=== PATIENT | male | born 1940 | race Caucasian/White ===

== ENCOUNTER → 2018-08-02 11:20 | Outpatient (CLI) | payer MEDICARE, SELFPAY ==
[2018-08-02 12:46] LABS: Alanine Aminotransferase 45 IU/L (21-72); Albumin 4.8 g/dL (3.5-5.0); Albumin Globulin Ratio 1.5 (1.0-2.8); Alkaline Phosphatase 68 U/L (38-126); Aspartate Aminotransferase 46 IU/L (17-59); Bilirubin Total 0.9 mg/dL (0.2-1.3); Blood Urea Nitrogen 19 mg/dL (9-20); Calcium 10.3 mg/dL (8.4-10.2); Carbon Dioxide 23 mmol/L (22-32); Chloride 104 mmol/L (98-107); Estimated Glomerular Filt Rate > 60.0 mL/min (>60); Globulin 3.1 g/dL (1.7-4.1); Glucose 106 mg/dL (80-110); HEMOLYSIS < 15 (0-50); Magnesium 2.1 mg/dL (1.6-2.3); Potassium 4.5 mmol/L (3.4-5.1); Sodium 142 mmol/L (137-145); Total Protein 7.9 g/dL (6.3-8.2)
[2018-08-07 11:59] LABS: Lipoprofile NMR SEE SEPERATE REPORT
== END ==
PROVIDERS: PCP Nurse Practitioner Adult Health; Visit Provider Specialist
DX: I10 Essential (primary) hypertension (principal)
CPT/HCPCS: 36415; 80053; 83704; 83735

== ENCOUNTER → 2018-08-13 12:45 | Outpatient (CLI) | payer MEDICARE, SELFPAY ==
--- NOTE | 2018-08-13 | DI.ECHO.S_ITS ---
[facility] +---------+ : : [address] : : : [place], [place] : : : : [id number] : : : : Phone: [phone]+ Echocardiogram Report + + :Name: FARHAD LEDESMA Study Date: 08/13/2018 Height: 67 in : :[facility] Weight: 190 lb: : Gender: Male BSA: 2.0 m2 : :: 1940 Age: 77 yrs : :Reason For Study: CAD : : Performed By: Winnie Monsivais : :Referring: YAEL MARCUM : + + Interpretation Summary The left ventricle is normal in size, wall thickness, and systolic function without any focal wall motion abnormalities with the ejection fraction visually estimated to be 60-65%. Diastolic parameters suggest a relaxation abnormality of the left ventricle, consistent with probable normal filling pressures. There has been no significant change since the previous study. The right ventricle is borderline dilated and right ventricular systolic function is borderline reduced, and appears larger and less dynamic compared to the previous study. The right ventricular systolic pressure is estimated to be at least 26 mmHg based on an estimated right atrial pressure of 3 mm Hg. Comparison with the previous study is not possible because this was unable to be assessed on the previous study. The left atrium is mildly dilated while the right atrium is borderline dilated. Both atria have mildly increased in size since the prior echo exam. There is mild mitral regurgitation that is unchanged compared to the previous study. There is mild tricuspid regurgitation and mild pulmonic regurgitation that are more prominent compared to the previous study. The ascending aorta is at the upper limits of normal in size but is grossly unchanged compared to the previous study. Procedure: A two-dimensional transthoracic echocardiogram with color flow and Doppler was performed. The study quality was technically good. Comparison is made with the echocardiogram of 10/24/2016. The heart rate ranged between 65-75 bpm during the study. Left Ventricle: The left ventricle is normal in size, wall thickness, and systolic function without any focal wall motion abnormalities. The ejection fraction is estimated to be 60-65%. Diastolic parameters suggest a relaxation abnormality of the left ventricle, consistent with probable normal filling pressures. There has been no significant change since the previous study. Right Ventricle: The right ventricle is borderline dilated. Right ventricular systolic function is borderline reduced. This is larger and less dynamic compared to the previous study. Atria: The left atrium is mildly dilated. Both atria have mildly increased in size since the prior echo exam. The right atrium is borderline dilated. There is no Doppler evidence for an interatrial shunt. Mitral Valve: The mitral valve is normal in structure and function. There is mild mitral annular calcification. There is mild mitral regurgitation. This is unchanged compared to the previous study. Aortic Valve: The aortic valve is normal in structure and function. The aortic valve is trileaflet. The aortic valve opens well. No aortic regurgitation is present. Tricuspid Valve: The tricuspid valve is normal in structure and function. There is mild tricuspid regurgitation. This is more prominent compared to the previous study. The right ventricular systolic pressure is estimated to be at least 26 mmHg based on an estimated right atrial pressure of 3 mm Hg. Comparison with the previous study is not possible because this was unable to be assessed on the previous study. Pulmonic Valve: The pulmonic valve is normal in structure and function. There is mild pulmonic regurgitation. This is more prominent compared to the previous study. Great Vessels: The aortic root is normal size. The ascending aorta is at the upper limits of normal in size. This is unchanged compared to the previous study. The aortic arch could not be visualized. The pulmonary artery is normal size. The IVC is of normal diameter and collapses greater than 50% with a sniff. This suggests a low right atrial pressure of 3 mm Hg. Pericardium/ Pleura There is no pericardial effusion. There is no pleural effusion. MMode/2D Measurements & Calculations LVIDd: 5.0 cm LVOT diam: 2.0 cm LVIDs: 3.0 cm Ao root diam: 3.4 cm FS: 39.8 % asc Aorta Diam: 3.4 cm EPSS: 0.37 cm IVSd: 0.77 cm LVPWd: 1.0 cm LV juárez. diameter/BSA (cm/m^2): 2.5 LV sys. diameter/BSA (cm/m^2): 1.5 LA A2 area: 21.8 cm2 RA long axis: 5.5 cm LA A4 area: 21.9 cm2 RA area: 20.0 cm2 LA length (vol): 5.5 cm RA vol: 62.4 ml LA vol: 73.5 ml RA : 31.6 ml/m2 LA vol index: 37.1 ml/m2 RVD1 (basal): 3.9 cm TAPSE: 1.3 cm Doppler Measurements & Calculations Ao V2 max: 155.7 cm/sec LVOT Max Simone: 122.8 cm/sec Ao V2 mean: 107.0 cm/sec LV V1 max P.0 mmHg Ao max P.7 mmHg LV V1 VTI: 26.2 cm Ao mean P.1 mmHg DESHAWN(I,D): 2.7 cm2 Ao V2 VTI: 30.9 cm DESHAWN(V,D): 2.5 cm2 sev ratio: 0.85 DESHAWN indexed to BSA (cm^2/m^2): 1.4 MV E max simone: 74.3 cm/sec TR max simone: 238.8 cm/sec MV A max simone: 84.9 cm/sec TR max P.8 mmHg MV E/A: 0.88 Med Peak E' Simone: 5.9 cm/sec E/E' med: 12.6 Lat Peak E' Simone: 9.7 cm/sec E/E' lat: 7.7 E/e' average: 10.1 MV dec time: 0.18 sec SV(LVOT): 84.5 ml Reading Physician:PM
== END ==
PROVIDERS: PCP Nurse Practitioner Adult Health; Visit Provider Specialist
DX: I08.1 Rheumatic disorders of both mitral and tricuspid valves (principal); I25.10 Atherosclerotic heart disease of native coronary artery without angina pectoris
CPT/HCPCS: 93306

== ENCOUNTER → 2018-12-09 14:17 | Outpatient (CLI) | payer MEDICARE, SELFPAY ==
[2018-12-09 15:31] LABS: Alanine Aminotransferase 37 IU/L (21-72); Albumin 4.8 g/dL (3.5-5.0); Albumin Globulin Ratio 1.7 (1.0-2.8); Alkaline Phosphatase 62 U/L (38-126); Aspartate Aminotransferase 30 IU/L (17-59); Bilirubin Total 0.5 mg/dL (0.2-1.3); Blood Urea Nitrogen 13 mg/dL (9-20); Calcium 10.5 mg/dL (8.4-10.2); Carbon Dioxide 25 mmol/L (22-32); Chloride 104 mmol/L (98-107); Estimated Glomerular Filt Rate > 60.0 mL/min (>60); Globulin 2.8 g/dL (1.7-4.1); Glucose 103 mg/dL (80-110); HEMOLYSIS < 15 (0-50); Potassium 4.6 mmol/L (3.4-5.1); Sodium 140 mmol/L (137-145); Total Protein 7.6 g/dL (6.3-8.2)
[2018-12-11 16:09] LABS: Lipoprofile NMR SEE SEPERATE REPORT
== END ==
PROVIDERS: PCP Nurse Practitioner Adult Health; Visit Provider Specialist
DX: E78.2 Mixed hyperlipidemia (principal)
CPT/HCPCS: 36415; 80053; 83704

== ENCOUNTER → 2020-01-25 14:54 | Outpatient (CLI) | payer OTHER, SELFPAY ==
[2020-01-25 15:57] LABS: Alanine Aminotransferase 24 IU/L (<50); Albumin 4.7 g/dL (3.5-5.0); Albumin Globulin Ratio 1.7 (1.0-2.8); Alkaline Phosphatase 51 U/L (38-126); Aspartate Aminotransferase 34 IU/L (17-59); BUN Creatinine Ratio 15.7 (6-22); Bilirubin Total 0.5 mg/dL (0.2-1.3); Blood Urea Nitrogen 13 mg/dL (9-20); Calcium 10.6 mg/dL (8.4-10.2); Carbon Dioxide 27 mmol/L (22-32); Chloride 105 mmol/L (98-107); Estimated Glomerular Filt Rate > 60.0 mL/min (>60); Globulin 2.8 g/dL (1.7-4.1); Glucose 106 mg/dL (80-110); HEMOLYSIS < 15 (0-50); Potassium 4.5 mmol/L (3.4-5.1); Sodium 138 mmol/L (137-145); Total Protein 7.5 g/dL (6.3-8.2)
[2020-01-27 07:41] LABS: Cholesterol, Total 152 mg/dL (100-199); HDL-Cholesterol 42 mg/dL (>39); HDL-Particle (Total) 28.8 umol/L (>=30.5); Historical Reading Comment: (.); LDL Particle 1154 nmol/L (<1000); LDL Size 20.6 nm (>20.5); LDL-Cholsterol 88 mg/dL (0-99); LP-IR Score 50 (<=45); Small LDL- Particle 468 nmol/L (<=527); Triglycerides 111 mg/dL (0-149)
== END ==
PROVIDERS: PCP Nurse Practitioner Adult Health; Referring Provider Specialist; Visit Provider Specialist
DX: E78.2 Mixed hyperlipidemia (principal)
CPT/HCPCS: 36415; 80053; 80061; 83704

== ENCOUNTER → 2020-01-31 14:50 | Outpatient (CLI) | payer OTHER, SELFPAY ==
[2020-02-01 09:01] LABS: COVID19 Sendout NOT DETECTED (Not Detect)
== END ==
PROVIDERS: PCP Nurse Practitioner Adult Health; Visit Provider Physician Assistant
DX: Z01.812 Encounter for preprocedural laboratory examination (principal)
CPT/HCPCS: 87635

== ENCOUNTER 2020-02-03 12:56 | Day surgery (SDC) | payer OTHER, SELFPAY ==
[2020-02-03] VITALS (7 sets, daily range): BP systolic 120–177; BP diastolic 67–76; PULSE 57–76; RESP 11–20; TEMP 36.5–36.9; O2SAT 93–99; BMI 29.2
--- NOTE | 2020-02-03 | PATH_ITS ---
[facility] Accession Number: [id number] . 01 Material submitted: . PART A: gastrointestinal site - GASTRIC BIOPSIES PART B: esophagus - ESOPHAGEAL BIOPSY . 01 Clinical history: . COLONOSCOPY/EGD W/POSS . 02 Diagnosis: A. Stomach, Biopsies: Helicobacter pylori gastritis. A moderate number of forms morphologically consistent with Helicobacter pylori highlighted by immunohistochemistry. Negative for intestinal metaplasia. Negative for dysplasia or malignancy. . B. Esophagus, Biopsy: Squamocolumnar junctional mucosa with specialized intestinal metaplasia; please see comment. Negative for dysplasia or malignancy. V 02/05/2020 1316 Local . 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 . 02 Electronically signed: . Hima Murray MD, PhD, Pathologist NPI- [id number] . 01 Gross description: . Part A: GASTRIC BIOPSIES: Received in formalin is 1 fragment(s) of gaming, soft tissue measuring 0.4 x 0.2 x 0.1 cm submitted entirely in 1 cassette(s) Part B: ESOPHAGEAL BIOPSY: Received in formalin are 2 fragment(s) of gaming, soft tissue measuring 0.4 x 0.1 x 0.1 cm to 0.3 x 0.1 x 0.1 cm submitted entirely in 1 cassette(s) /QBJ 02/04/2020 0111 Local . 02 Microscopic: . A. An immunohistochemical stain was performed to evaluate for Helicobacter organisms and highlights a moderate number of forms morphologically consistent with Helicobacter pylori. A control stain shows appropriate reactivity. . * This test was developed and its performance characteristics determined by [employer]. It has not been cleared or approved by the U.S. Food and Drug Administration. The FDA has determined that such clearance or approval is not necessary. This test is used for clinical purposes. It should not be regarded as investigational or for research. . 02 Pathologist provided ICD-10: K29.70, B96.81, K22.70 . 02 CPT . 403664, 458439, J88991 Performed at: 01 [facility] [address] [place] [address], [place], [place] [id number] MD Conrado Mukherjee MD Phone: [phone] Performed at: 02 [facility] [address] [place] [id number] MD Sharmaine Mirza MD Phone: [phone]
[2020-02-03] MEDS: SODIUM CHLORIDE 0.9% 1,000 ML 21 ML IV (14:07)
--- NOTE | 2020-02-03 14:15 | PM.HP.1 ---
History of Present Illness History of Present Illness Date Patient Seen: 02/03/20 Time Patient Seen: 14:15 Chief complaint: [id number] COLONOSCOPY/EGD W/POSS BX Narrative: Heartburn and colon cancer screening Patient History Family & Social History Social History: household members none Tobacco & Substance use: Smoking Status Never smoker alcohol intake never Substance Use Type marijuana Meds Home Medications and Allergies Home Medications Medication Instructions Recorded Confirmed Type ASPIRIN (#ASPIRIN CHILDREN'S) 81 mg PO Q DAY #0 01/12/11 02/03/20 History atorvastatin [Lipitor] 20 mg PO HS #0 01/12/11 02/03/20 History metoprolol tartrate 12.5 mg PO BID 02/03/20 02/03/20 History Allergies Allergy/AdvReac Type Severity Reaction Status Date / Time IODINE Allergy Severe ALL OVER Uncoded 02/03/20 13:45 BODY RASH Exam Vital Signs (past 8 hours): - 02/03/20 13:55 Temperature 97.7 F Pulse Rate 76 Respiratory Rate 20 Blood Pressure 177/76 H Pulse Oximetry 99 Oxygen Delivery Method Room Air Narrative Exam Narrative: Oropharynx free of lesions Chest clear to auscultation percussion Cardiac exam reveals no S3 or murmur Assessment & Plan Assessment & Plan narrative: Heartburn and need for colorectal cancer screening. Need for EGD and colonoscopy. Risks, benefits, alternatives have been explained.
--- NOTE | 2020-02-03 14:18 | PM.OP.ENDO ---
Operative Date/Time/Diagnoses Date of procedure: 02/03/20 Time of procedure: 14:18 Pre-op diagnosis: See indication and findings Procedure & Clinicians Study performed: EGD and colonoscopy Same procedure as scheduled: Yes Indications: Heartburn and colorectal cancer screening Surgeon: Elian Cuadra Procedure Notes Procedure in detail: After informed consent was obtained the patient was placed in left lateral decubitus position. The video upper scope was placed into the oropharynx with patient's help swallowed into the esophagus. The esophagus, stomach, duodenum were carefully examined. On withdrawal, retroflexed view of the GE junction was performed. The scope was removed. The patient tolerated the procedure well. The patient was then turned and a colonoscope was substituted. This introduced to the rectum easily passed the cecum. Preparation was good. On slow withdrawal mucosa was carefully examined. The scope was removed. The patient tolerated procedure well. Blood loss none Complications none Sedation Total sedation time 12 minutes Versed 7 mg fentanyl 100 mg IV titration Findings 1. 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 This was between 3937 cm. Focal biopsies were taken of each of the tongues. These were all placed in the same bottle. 2. Normal stomach 3. Normal duodenum Patient should have follow-up upper endoscopy in 3 years. We will be in touch regarding his biopsy findings.
[2020-02-03] MEDS: MIDAZOLAM 5 MG/5 ML VIAL IV (14:43)
[2020-02-03] MEDS: fentaNYL 250 MCG/5 ML INJ IV (14:44)
--- NOTE | 2020-02-03 14:54 | PM.OP.ENDO ---
Operative Date/Time/Diagnoses Date of procedure: 02/03/20 Time of procedure: 14:54 Pre-op diagnosis: See indication and findings Procedure & Clinicians Study performed: EGD and colonoscopy Same procedure as scheduled: Yes Indications: Heartburn and colorectal cancer screening Surgeon: Elian Cuadra Procedure Notes Procedure in detail: After informed consent was obtained the patient was placed in left lateral decubitus position. The video upper scope was placed into the oropharynx with patient's help swallowed into the esophagus. The esophagus, stomach, duodenum were carefully examined. On withdrawal, retroflexed view of the GE junction was performed. The scope was removed. The patient tolerated the procedure well. The patient was then turned and a colonoscope was substituted. This introduced to the rectum easily passed the cecum. Preparation was good. On slow withdrawal mucosa was carefully examined. The scope was removed. The patient tolerated procedure well. Blood loss none Complications none Sedation Total sedation time 26 minutes Versed 5 mg fentanyl 100 micro g IV titration Findings EGD 1. Probable Quiñones's esophagus with 3 tongues of tissue 1 cm above the top of the gastric folds. This was not circumferential. This would be C0M1. Directed biopsies were taken in all put in the same bottle. 2. Scattered erosions in the body of the stomach a some with nearby hematin flexs. Biopsies taken in the stomach to rule out Helicobacter 3. Normal duodenal bulb and sweep Colonoscopy 1. Completely normal colonoscopy to cecum I expect that herald will have Quiñones's esophagus should have follow-up EGD in 1-3 years. He will not need follow-up colonoscopy.
--- NOTE | 2020-02-03 16:04 | SUR.PHASEII ---
Friend called, pt ready to go, left in stable condition.
== END 2020-02-03 16:04 | disposition home or self-care (01) ==
PROVIDERS: PCP Nurse Practitioner Adult Health; Referring Provider Nurse Practitioner Adult Health; Visit Provider Internal Medicine Gastroenterology
PROC: 0DJ08ZZ Inspection of Upper Intestinal Tract, Via Natural or Artificial Opening Endoscopic (ICD-10-PCS; CPT 43235; principal; 2020-02-03 15:00)
PROC: 0DJD8ZZ Inspection of Lower Intestinal Tract, Via Natural or Artificial Opening Endoscopic (ICD-10-PCS; CPT 45378; 2020-02-03 15:00)
DX: Z12.11 Encounter for screening for malignant neoplasm of colon (principal); I25.10 Atherosclerotic heart disease of native coronary artery without angina pectoris; I10 Essential (primary) hypertension; E78.5 Hyperlipidemia, unspecified; K29.70 Gastritis, unspecified, without bleeding; B96.81 Helicobacter pylori [H. pylori] as the cause of diseases classified elsewhere; K22.70 Barrett's esophagus without dysplasia
CPT/HCPCS: 43239; 45378; J2250; J3010

== ENCOUNTER → 2020-12-04 09:46 | Outpatient (CLI) | payer MEDICARE, SELFPAY ==
[2020-12-04 12:45] LABS: COVID19 -Nasal RAPID Negative (Negative)
== END ==
PROVIDERS: PCP Nurse Practitioner Adult Health; Visit Provider Physician Assistant
DX: Z20.822 Contact with and (suspected) exposure to COVID-19 (principal); R53.83 Other fatigue
CPT/HCPCS: 87635

== ENCOUNTER → 2021-03-31 11:11 | Outpatient (CLI) | payer MEDICARE, SELFPAY ==
[2021-03-31 11:27] LABS: COVID19 -Nasal RAPID POSITIVE (Negative)
== END ==
PROVIDERS: PCP Nurse Practitioner Adult Health; Referring Provider Nurse Practitioner; Visit Provider Nurse Practitioner
DX: U07.1 COVID-19 (principal)
CPT/HCPCS: 87635

== ENCOUNTER → 2021-10-02 14:09 | Outpatient (CLI) | payer MEDICARE, SELFPAY ==
[2021-10-02 15:37] LABS: Alanine Aminotransferase 23 IU/L (<50); Albumin 4.6 g/dL (3.5-5.0); Albumin Globulin Ratio 1.5 (1.0-2.8); Alkaline Phosphatase 51 U/L (38-126); Aspartate Aminotransferase 33 IU/L (17-59); BUN Creatinine Ratio 11.5 (6-22); Bilirubin Total 0.7 mg/dL (0.2-1.3); Blood Urea Nitrogen 10 mg/dL (9-20); Calcium 10.5 mg/dL (8.4-10.2); Carbon Dioxide 27 mmol/L (22-32); Chloride 108 mmol/L (98-107); Estimated Glomerular Filt Rate > 60.0 mL/min (>60); Glucose 106 mg/dL (80-110); HEMOLYSIS < 15 (0-50); Potassium 4.7 mmol/L (3.4-5.1); Sodium 139 mmol/L (137-145); Total Protein 7.6 g/dL (6.3-8.2)
[2021-10-04 09:33] LABS: Cholesterol, Total 123 mg/dL (100-199); HDL-Cholesterol 42 mg/dL (>39); HDL-Particle (Total) 29.7 umol/L (>=30.5); Historical Reading Comment: (.); LDL Particle 1011 nmol/L (<1000); LDL Size 20.2 nm (>20.5); LDL-Cholsterol 60 mg/dL (0-99); LP-IR Score 57 (<=45); Small LDL- Particle 608 nmol/L (<=527); Triglycerides 113 mg/dL (0-149)
== END ==
PROVIDERS: PCP Nurse Practitioner Adult Health; Referring Provider Physician Assistant Medical; Visit Provider Physician Assistant Medical
DX: E78.00 Pure hypercholesterolemia, unspecified (principal)
CPT/HCPCS: 36415; 80053; 80061; 83704

== ENCOUNTER → 2022-06-11 10:04 | Outpatient (CLI) | payer MEDICARE, SELFPAY ==
[2022-06-11 11:58] LABS: Alanine Aminotransferase 22 IU/L (<50); Albumin 4.4 g/dL (3.5-5.0); Albumin Globulin Ratio 1.6 (1.0-2.8); Alkaline Phosphatase 49 U/L (38-126); Aspartate Aminotransferase 32 IU/L (17-59); BUN Creatinine Ratio 17.6 (6-22); Bilirubin Total 0.5 mg/dL (0.2-1.3); Blood Urea Nitrogen 15 mg/dL (9-20); Calcium 10.2 mg/dL (8.4-10.2); Carbon Dioxide 25 mmol/L (22-32); Chloride 104 mmol/L (98-107); Estimated Glomerular Filt Rate > 60 mL/min (>60); Globulin 2.8 g/dL (1.7-4.1); Glucose 109 mg/dL (80-110); HEMOLYSIS < 15 (0-50); Magnesium 2.1 mg/dL (1.6-2.3); Potassium 4.6 mmol/L (3.4-5.1); Sodium 140 mmol/L (137-145); Total Protein 7.2 g/dL (6.3-8.2)
[2022-06-11 12:25] LABS: Thyroid Stimulating Hormone 7.68 uIU/mL (0.47-4.68)
[2022-06-13 12:21] LABS: Cholesterol, Total 123 mg/dL (100-199); HDL-Cholesterol 41 mg/dL (>39); HDL-Particle (Total) 28.1 umol/L (>=30.5); LDL Particle 914 nmol/L (<1000); LDL Size 20.4 nm (>20.5); LDL-Cholsterol 64 mg/dL (0-99); LP-IR Score 50 (<=45); Small LDL- Particle 578 nmol/L (<=527); Triglycerides 93 mg/dL (0-149)
== END ==
PROVIDERS: PCP Physician Assistant; Referring Provider Specialist; Visit Provider Specialist
DX: I10 Essential (primary) hypertension (principal); E78.00 Pure hypercholesterolemia, unspecified
CPT/HCPCS: 36415; 80053; 80061; 83704; 83735; 84443

== ENCOUNTER → 2023-03-12 10:18 | Outpatient (CLI) | payer MEDICARE, SELFPAY ==
[2023-03-12 11:21] LABS: Alanine Aminotransferase 23 IU/L (<50); Albumin 4.4 g/dL (3.5-5.0); Albumin Globulin Ratio 1.5 (1.0-2.8); Alkaline Phosphatase 59 U/L (38-126); Aspartate Aminotransferase 35 IU/L (17-59); BUN Creatinine Ratio 13.7 (6-22); Bilirubin Total 0.6 mg/dL (0.2-1.3); Blood Urea Nitrogen 13 mg/dL (9-20); Calcium 10.3 mg/dL (8.4-10.2); Carbon Dioxide 26 mmol/L (22-32); Chloride 105 mmol/L (98-107); Cholesterol 132 mg/dL (140-199); Estimated Glomerular Filt Rate > 60 mL/min (>60); Globulin 2.9 g/dL (1.7-4.1); Glucose 101 mg/dL (80-110); HDL Cholesterol 45 mg/dL (40-60); HEMOLYSIS < 15 (0-50); LDL Cholesterol Calculated 64 mg/dL (<100); Magnesium 2.2 mg/dL (1.6-2.3); Potassium 4.7 mmol/L (3.4-5.1); Sodium 138 mmol/L (137-145); Total Protein 7.3 g/dL (6.3-8.2); Triglycerides 115 mg/dL (35-150)
== END ==
PROVIDERS: PCP Physician Assistant; Referring Provider Specialist; Visit Provider Specialist
DX: I10 Essential (primary) hypertension (principal); E78.00 Pure hypercholesterolemia, unspecified
CPT/HCPCS: 36415; 80053; 80061; 83735

== ENCOUNTER → 2023-10-20 14:16 | Outpatient (CLI) | payer OTHER, MEDICARE, SELFPAY ==
--- NOTE | 2023-10-20 14:18 | DI.MRI.S_ITS ---
PROCEDURE: MR LUMBAR SPINE WO CON INDICATIONS: Spinal stenosis, lumbar region without neurogenic TECHNIQUE: Noncontrast sagittal T1 spin echo and T2 fast echo, sagittal STIR, and T2 fast spin echo through the lumbar spine. In cases with scoliosis, additional coronal T2 fast spin echo may be performed. COMPARISON: [facility] [place], CR, SPINE LUMB 2 OR 3VW, 10/13/2014, 16:31. [facility], , L-SPINE WITHOUT CONTRAST, 12/24/2013, 9:20. FINDINGS: Image quality: Diagnostic Alignment and Curvature: Stable bony alignment status post interval spinal fusion of L3 through L5 using left sided perispinal shabnam and pedicular screws. Persistent minimal retrolisthesis of L2 on L3 and mild grade 1 retrolisthesis of L1 on L2. Stable postsurgical changes of discectomies at L3-4 and L4-5 and placement of interbody spacers. Bone Marrow: Marrow is of stable overall signal. No acute vertebral body compression fractures. Spinal Cord: Conus medullaris terminates at the L1 level. Visualized cord demonstrates normal signal and size. Paraspinous Soft Tissues: No paravertebral masses. Tiny T2 hyperintense lesion in the left kidney compatible with a cyst. T12-L1: Bilateral facet arthropathy. Ligamentum flavum hypertrophy. No significant neuroforaminal or spinal canal stenosis. L1-L2: Moderate bilateral facet arthropathy. Significant disc space loss and moderate degenerative endplate changes with prominent endplate osteophytes. Mild retrolisthesis of L1 on L2. Moderate bilateral neuroforaminal stenosis. No significant spinal canal stenosis. L2-L3: Moderate degenerative endplate changes with prominent endplate osteophytes. Mild retrolisthesis of L2 on L3. Moderate bilateral facet arthropathy. Ligamentum flavum hypertrophy. Prominent symmetric disc bulge. Loss of disc space. There is severe right and moderate-severe left bilateral neuroforaminal stenosis with moderate-severe spinal canal stenosis. L3-L4: Status L4 discectomy with interbody spacer placement. Postsurgical changes of left posterior fusion with paraspinal rods and pedicular screw fixation. Moderate right facet arthropathy. There is moderate-severe right and minimal left bilateral neuroforaminal stenosis. No significant spinal canal stenosis. There also findings compatible with right hemilaminectomy at this level. L4-L5: Status post L4-5 discectomy with interbody spacer. Apparent postsurgical changes of right hemilaminectomy. Postsurgical changes of left spinal fusion with pedicular screws and paraspinal rods fixation. There is moderate right and minimal left bilateral neuroforaminal stenosis. No significant spinal canal stenosis. L5-S1: Bilateral facet arthropathy. Small symmetric disc bulge. There is mild right and minimal left bilateral neuroforaminal stenosis without significant spinal canal stenosis. IMPRESSION: 1. Lumbar spine without acute abnormalities. 2. Postsurgical changes of left posterior spinal fusion of L3-4 through L4-5 with left pedicular screw and paraspinal rods fixation. Status post discectomies of L3-4 and L4-5 with placement of interbody spacer. 3. Moderate multilevel, multifactorial lumbar spondylosis as described above by vertebral body level. Findings are most severe at L2-3 Approved by: William Stoddard M.D. on 10/21/2023 at 10:46
== END ==
PROVIDERS: PCP Physician Assistant; Referring Provider Physician Assistant; Visit Provider Physician Assistant
DX: M48.061 Spinal stenosis, lumbar region without neurogenic claudication (principal); M47.815 Spondylosis without myelopathy or radiculopathy, thoracolumbar region; M47.816 Spondylosis without myelopathy or radiculopathy, lumbar region; M47.817 Spondylosis without myelopathy or radiculopathy, lumbosacral region; Z98.1 Arthrodesis status
CPT/HCPCS: 72148

== ENCOUNTER 2025-06-25 14:16 | Inpatient (IN) | payer OTHER, SELFPAY ==
[2025-06-25] VITALS (18 sets, daily range): BP systolic 130–181; BP diastolic 43–116; PULSE 83–92; RESP 16–30; TEMP 36.8–37; O2SAT 92–98; BMI 26.3; BMI 25.7
--- NOTE | 2025-06-25 14:44 | EKG_ITS ---
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
--- NOTE | 2025-06-25 14:46 | DI.CT.S_ITS ---
PROCEDURE: CT HEAD/BRAIN WO CON INDICATIONS: Trauma TECHNIQUE: Noncontrast 4.5 mm thick angled axial sections acquired from the foramen magnum to the vertex, with coronal and sagittal reformats. For radiation dose reduction, the following was used: automated exposure control, adjustment of mA and/or kV according to patient size. COMPARISON: [facility], CT, CT CHEST ABD PEL WO CON, 06/25/2025, 15:04. [facility], CT, CT CERVICAL SPINE WO CON, 06/25/2025, 15:04. FINDINGS: Image quality: Streak artifact can be seen through the skull base. This examination is limited by involuntary motion artifact. CSF spaces: Basal cisterns are patent. No extra-axial fluid collections. The ventricles are symmetric in size and shape. Brain: No intracranial bleeds or mass effect. There is cerebral volume loss, with resultant ventricular and sulcal prominence. There are periventricular and deep white matter chronic small vessel ischemic changes. There is intracranial internal carotid artery atherosclerosis. Skull and face: Calvarium and visualized facial bones appear intact, without suspicious lesions. Sinuses: Visualized sinuses and mastoids are clear. IMPRESSION: No acute intracranial hemorrhage is seen. No acute intracranial pathology. Dictated by: Frantz Argueta M.D. on 06/25/2025 at 14:34 Approved by: Frantz Argueta M.D. on 06/25/2025 at 14:35
--- NOTE | 2025-06-25 14:46 | DI.CT.S_ITS ---
PROCEDURE: CT CERVICAL SPINE WO CON INDICATIONS: Trauma TECHNIQUE: Noncontrast 3 mm thick sections acquired from the skull base to the T4 level. Sagittal and coronal reformats were then constructed. For radiation dose reduction, the following was used: automated exposure control, adjustment of mA and/or kV according to patient size. COMPARISON: [facility], CR, XR CERVICAL SPINE 2 OR 3 VIEWS, 04/01/2025, 10:49. [facility], CT, CT CHEST ABD PEL WO CON, 06/25/2025, 15:04. [facility], CT, CT HEAD/BRAIN WO CON, 06/25/2025, 15:04. FINDINGS: Image quality: This examination is somewhat limited by quantum mottle artifact. Bones: No fractures or dislocations. Visualized superior ribs are intact. Cervical spine fixation hardware can be seen anteriorly, at the C3 through C6 levels. Disc spacers are seen throughout the fused region. No findings of hardware failure or hardware loosening are seen. Focal degenerative change is seen involving the C1-C2 interface anteriorly. At least moderate disc space narrowing can be seen at the C6-C7 level, with associated endplate irregularity and sclerosis. Multiple levels of facet hypertrophy can be seen. Soft tissues: Prevertebral soft tissues are normal in thickness. No paravertebral hematomas. No apical pneumothoraces. Atherosclerotic calcification is noted. IMPRESSION: No displaced fracture or traumatic subluxation. Intact appearing anterior fixation hardware seen. Dictated by: Frantz Argueta M.D. on 06/25/2025 at 14:35 Approved by: Frantz Argueta M.D. on 06/25/2025 at 14:37
--- NOTE | 2025-06-25 15:00 | ED_ITS ---
HPI - Fall General Chief Complaint: Fall Stated Complaint: multiple falls, recent spinal surgery Time Seen by Provider: 06/25/25 14:31 Source: patient, family and EMS Mode of arrival: EMS History of Present Illness HPI Narrative: 84-year-old male with a past medical history of hyperlipidemia, hypertension, CAD, CABG, comes into the ED from home for evaluation of multiple complaints. patient states that he has been feeling weak causing multiple falls, states that he has had 3 falls today. To note he states that he has been recovering from a low back surgery performed on 06/15/[address] Sparks at [facility]. he states that he has been okay with managing the pain, however he states that yesterday he went to the dentist's office to get his teeth cleaned and after he got out of the chair states that he started feeling more pain to his low back, states that this feels like what may have caused his increased weakness.. He states that yesterday he started feeling some fevers chills, at this time patient denies any blood thinners, no LOC. No head strike. He is currently complaining of pain all over, he however denies any numbness weakness tingling to the lower extremities, he denies any saddle paresthesias denies any bowel or urinary incontinence or retention. Related Data Home Medications ?Medication ?Instructions ?Recorded ?Confirmed ASPIRIN (#ASPIRIN CHILDREN'S) 81 mg PO Q DAY ##0 01/1202/03/20 atorvastatin 40 mg tablet (Lipitor) 20 mg PO HS ##0 02/03/20 metoprolol tartrate 25 mg tablet 12.5 mg PO BID 02/03/20 Allergies Allergy/AdvReac Type Severity Reaction Status Date / Time IODINE Allergy Severe ALL OVER Uncoded 02/03/20 13:45 BODY RASH Review of Systems Review of Systems Narrative: General: positive generalized weakness, chillsDenies fever,weight loss HEENT: Denies headache, eye drainage, eye irritation, head trauma, sore throat, voice change Cardiovascular: Denies any chest pain, palpitations, tachycardia Respiratory: Denies any shortness of breath, cough, wheeze, stridor GI/: Denies any abdominal pain, nausea, vomiting, diarrhea, bright red blood per rectum, melanotic stools, urinary frequency, urinary retention, dysuria, hematuria MSK: positive pain to elbow forearm ribs hip chest Skin: Denies any rashes, lesions, discoloration Neuro: Denies any headache, lightheadedness, dizziness, fainting, weakness Psych: Denies SI/HI Patient History Social History household members: none alcohol intake: never tobacco type: smokeless tobacco Exam Narrative Exam Narrative: General: Cooperative, well-developed, not in acute distress HEENT: Normocephalic, atraumatic, PERRLA, normal sclera, eyelids normal Neck: Active full range of motion, atraumatic Chest: Normal to inspection, negative crepitus, no overlying erythema ecchymosis Respiratory: Normal respiratory effort, not in acute respiratory distress, clear to auscultation bilaterally negative cough, wheeze, tachypnea, rhonchi, rales Cardiology: Regular rate rhythm negative gallop, murmur, rubs GI/: No tenderness to palpation, soft, non rigid, normal to inspection, exam deferred MSK: Full active range of motion in all 4 extremities, lumbar spine Well- healing scar to the lumbar spine no purulent discharge noted Skin: No rashes or lesions noted Neuro: Alert awake oriented x3, moves all 4 extremities spontaneously, cranial nerves intact, able to answer all questions appropriately follows commands appropriately Psych: Cooperative, negative suicidal or homicidal ideations Initial Vital Signs Initial Vital Signs: Vital Signs Temperature 98.2 F 06/25/25 14:20 Pulse Rate 83 06/25/25 14:20 Respiratory Rate 16 06/25/25 14:20 Blood Pressure 152/70 H 06/25/25 14:20 Pulse Oximetry 94 06/25/25 14:20 Oxygen Delivery Method Room Air 06/25/25 14:20 Course Orders Ordered: ED Orders 06/25/25 14:19 Complete Blood Count AUTO DIFF Stat Comprehensive Metabolic Panel Stat Ethanol (ETOH) Stat PTT Partial Thromboplastin Bhanu Stat Procalcitonin Stat Prothrombin Time INR Stat Troponin & CK Cardiac Panel Stat 06/25/25 14:44 EKG-12 Lead Stat 06/25/25 14:46 CT cervical spine wo con Stat CT head/brain wo con Stat 06/25/25 15:00 Urine Culture Stat Urine Drug Screen, Rapid Stat Urine Microscopic Stat 06/25/25 15:03 CT chest abd pel wo con Stat CT lumbar spine wo con Stat 06/25/25 15:35 Lactate (Lactic Acid) Stat 06/25/25 15:59 XR knee LT 3V Stat XR knee RT 3V Stat 06/25/25 17:10 Troponin & CK Cardiac Panel Stat Discontinued Medications Hydromorphone HCl (Hydromorphone 1 Mg/Ml Syringe) 1 mg IV NOW ONE Stop: 06/25/25 15:56 Last Admin: 06/25/25 16:13 Dose: 1 mg Documented By: BECKY Sodium Chloride (Normal Saline 0.9%) 1,000 mls @ 1,000 mls/hr IV BOLUS ONE Stop: 06/25/25 15:54 Last Admin: 06/25/25 16:14 Dose: 1,000 mls/hr Documented By: BECKY Sodium Chloride (Normal Saline 0.9%) 1,000 mls @ 1,000 mls/hr IV BOLUS ONE Stop: 06/25/25 16:54 Last Admin: 06/25/25 16:15 Dose: 1,000 mls/hr Documented By: BECKY Vital Signs Vital signs: Vital Signs - 8 hr 06/25/25 14:20 06/25/25 14:20 06/25/25 14:30 Temperature 98.2 F Pulse Rate 83 84 Respiratory Rate 16 20 Blood Pressure 152/70 H 153/71 H Pulse Oximetry 94 95 Oxygen Delivery Method Room Air 06/25/25 14:30 06/25/25 15:00 06/25/25 15:01 Temperature Pulse Rate 85 84 86 Respiratory Rate 19 30 H 27 H Blood Pressure Pulse Oximetry 98 98 97 Oxygen Delivery Method 06/25/25 15:01 06/25/25 15:16 06/25/25 15:16 Temperature Pulse Rate 84 Respiratory Rate 21 Blood Pressure 152/110 H 181/116 H Pulse Oximetry 95 Oxygen Delivery Method 06/25/25 15:30 06/25/25 16:00 06/25/25 16:01 Temperature Pulse Rate 85 84 Respiratory Rate 30 H Blood Pressure 130/59 L Pulse Oximetry 95 92 Oxygen Delivery Method 06/25/25 16:01 Temperature Pulse Rate 83 Respiratory Rate Blood Pressure Pulse Oximetry 94 Oxygen Delivery Method MDM - Fall Lab Data 06/25/25 14:19 06/25/25 14:19 Labs: Lab Results 11/14/25 11/14/25 11/14/25 Range/Units 14:19 15:00 15:35 WBC 11.5 H (4.5-11.0) X10^3/uL RBC 4.57 (4.5-5.9) X10^6/uL Hgb 13.7 (13.5-17.5) g/dL Hct 40.3 L (41-53) % MCV 88.3 (80-100) fL MCH 29.9 (26-34) PG MCHC 33.9 (30-36) % RDW 13.5 (11.6-14.8) % Plt Count 288 (150-400) X10^3/uL Neut % (Auto) 88.5 H (50-75) % Lymph % (Auto) 3.8 L (25-40) % [place] % (Auto) 7.2 (3-14) % Eos % (Auto) 0.0 L (2-4) % Baso % (Auto) 0.5 (0-2) % Neut # (Auto) 14761 H (0118-4737) /uL Lymph # (Auto) 400 L (4368-0535) /uL [place] # (Auto) 800 (0-900) /uL Eos # (Auto) 0 (0-450) /uL Baso # (Auto) 100 (0-100) /uL PT 16.0 H (9.4-12.5) SECONDS INR 1.4 H (0.9-1.3) APTT 30 (25.1-36.5) SECONDS Sodium 137 (137-145) mmol/L Potassium 4.3 (3.4-5.1) mmol/L Chloride 104 (98-107) mmol/L Carbon Dioxide 21 L (22-32) mmol/L BUN 25 H (9-20) mg/dL Creatinine 1.12 (0.66-1.25) mg/dL Estimated GFR > 60 (>60) mL/min BUN/Creatinine Ratio 22.3 H (6-22) Glucose 124 H (70-99) mg/dL POC Whole Bld Glucose (70-99) mg/dL Lactate 3.2 H (0.7-2.1) mmol/L Calcium 10.7 H (8.4-10.2) mg/dL Total Bilirubin 1.4 H (0.2-1.3) mg/dL AST 565 H (17-59) IU/L ALT 111 H (<50) IU/L Alkaline Phosphatase 60 (38-126) U/L Total Creatine Kinase 40985 H (55-170) U/L Troponin I 0.156 H* (0.01-0.034) ng/mL Total Protein 7.4 (6.3-8.2) g/dL Albumin 4.4 (3.5-5.0) g/dL Globulin 3.0 (1.7-4.1) g/dL Albumin/Globulin Ratio 1.5 (1.0-2.8) Procalcitonin 12.2 H (<0.5) ng/mL Urine RBC 0-1/hpf (0-5/HPF) Urine WBC 0-1/hpf (0-5/HPF) Ur Squamous Epith Cells 0-1 /hpf (0-5/HPF) Amorphous Sediment 3+ Urine Bacteria Occasional (0-1) (None) Granular Casts 1-5/lpf (None) Urine Mucus 1+ H (Negative) Vol Urine Centrifuged 10ml (spun) U Opiates 300ng/mL cut Negative (Negative) Ur Oxycodone Screen Positive H (Negative) Urine Methadone Screen Negative (Negative) Ur Barbiturates Screen Negative (Negative) U Tricyclic Antidepress Negative (Negative) Ur Phencyclidine Scrn Negative (Negative) Ur Amphetamines Screen Negative (Negative) U Methamphetamines Scrn Negative (Negative) Ur MDMA Scrn (Ecstasy) Negative (Negative) U Benzodiazepines Scrn Negative (Negative) Urine Cocaine Screen Negative (Negative) U Marijuana (THC) Screen Positive H (Negative) Urine pH Normal (Normal) Urine Specific [place] Normal (Normal) Ethyl Alcohol < 10 (<10) mg/dL Ur Creatinine Normal (Normal) 06/25/25 Range/Units 15:55 WBC (4.5-11.0) X10^3/uL RBC (4.5-5.9) X10^6/uL Hgb (13.5-17.5) g/dL Hct (41-53) % MCV (80-100) fL MCH (26-34) PG MCHC (30-36) % RDW (11.6-14.8) % Plt Count (150-400) X10^3/uL Neut % (Auto) (50-75) % Lymph % (Auto) (25-40) % [place] % (Auto) (3-14) % Eos % (Auto) (2-4) % Baso % (Auto) (0-2) % Neut # (Auto) (6755-9351) /uL Lymph # (Auto) (1863-6982) /uL [place] # (Auto) (0-900) /uL Eos # (Auto) (0-450) /uL Baso # (Auto) (0-100) /uL PT (9.4-12.5) SECONDS INR (0.9-1.3) APTT (25.1-36.5) SECONDS Sodium (137-145) mmol/L Potassium (3.4-5.1) mmol/L Chloride (98-107) mmol/L Carbon Dioxide (22-32) mmol/L BUN (9-20) mg/dL Creatinine (0.66-1.25) mg/dL Estimated GFR (>60) mL/min BUN/Creatinine Ratio (6-22) Glucose (70-99) mg/dL POC Whole Bld Glucose 121 H (70-99) mg/dL Lactate (0.7-2.1) mmol/L Calcium (8.4-10.2) mg/dL Total Bilirubin (0.2-1.3) mg/dL AST (17-59) IU/L ALT (<50) IU/L Alkaline Phosphatase (38-126) U/L Total Creatine Kinase (55-170) U/L Troponin I (0.01-0.034) ng/mL Total Protein (6.3-8.2) g/dL Albumin (3.5-5.0) g/dL Globulin (1.7-4.1) g/dL Albumin/Globulin Ratio (1.0-2.8) Procalcitonin (<0.5) ng/mL Urine RBC (0-5/HPF) Urine WBC (0-5/HPF) Ur Squamous Epith Cells (0-5/HPF) Amorphous Sediment Urine Bacteria (None) Granular Casts (None) Urine Mucus (Negative) Vol Urine Centrifuged U Opiates 300ng/mL cut (Negative) Ur Oxycodone Screen (Negative) Urine Methadone Screen (Negative) Ur Barbiturates Screen (Negative) U Tricyclic Antidepress (Negative) Ur Phencyclidine Scrn (Negative) Ur Amphetamines Screen (Negative) U Methamphetamines Scrn (Negative) Ur MDMA Scrn (Ecstasy) (Negative) U Benzodiazepines Scrn (Negative) Urine Cocaine Screen (Negative) U Marijuana (THC) Screen (Negative) Urine pH (Normal) Urine Specific [place] (Normal) Ethyl Alcohol (<10) mg/dL Ur Creatinine (Normal) Point of Care Testing Glucose POC 121 Urine Dip Bedside Urine Glucose Negative Bedside Urine Bilirubin - Negative Bedside Urine Ketone +/- 5 Urine Specific [place] 1.030 Bedside Urine Occult Blood +++ Bedside Urine pH 6.0 Bedside Urine Protein ++ 100 Bedside Urine Urobilinogen - Negative Bedside Urine Nitrite - Negative Bedside Urine Leukocytes + 70 Esterase ECG Data Interpretation: EKG interpreted ED physician sinus 84 beats per minute QTC 437, there are T-wave inversions in V1 and V2, QRS [place] interval within normal limits, no STEMI MDM Narrative Medical decision making narrative: 84-year-old male with a past medical history of hyperlipidemia, hypertension, CAD, CABG, recent lumbar surgery performed by Dr. Sparks on 06/15/2025 presenting for multiple complaints, states yesterday started feeling some generalized weakness chills, as well as increased low back pain after having his teeth cleaned yesterday, states that he feels like it was after being laid down and getting up in the chair, he believes that it is what caused his multiple falls. according to the patient he was unable to get up and is not sure how long he was on the floor for. He denies any red flags for cauda equina, states he has had some difficulty handling the pain but otherwise states that he would not be here for that he is here due to the multiple falls and weakness. the lumbar spine does appear well healing, no purulent discharge noted no erythema, patient with mildly elevated leukocytosis of 11.5, initial troponin was elevated at 0.156 with CK at 41,271 , EKG did show some T-wave inversions in the anterior leads V1 and V2 however given patient with elevated CK and without any chest pain shortness of breath I do believe this is more type 2 spilled, fluids ordered, repeat troponin and CK was ordered. CT scans/imaging did not show any traumatic injury to the bone, did note hematoma to the right gluteal region but compartments off my exam. Given patient with elevated CK increased pain secondary to the fall we will require admission for pain control and hydration for rhabdomyolysis. The patient's management plan was discussed Dr. Fountain, who agrees to admit the patient to their service and assumes care of this patient at this time. Full admission orders will be placed by the primary team. Discharge Plan Departure Patient Disposition: Admitted As Inpatient Clinical Impression: Traumatic rhabdomyolysis, Intractable back pain
--- NOTE | 2025-06-25 15:03 | DI.CT.S_ITS ---
PROCEDURE: CT LUMBAR SPINE WO CON INDICATIONS: recent lumbar surgery TECHNIQUE: Noncontrast 3 mm thick sections acquired from the T12 level to the sacrum. Sagittal and coronal reformats were constructed. For radiation dose reduction, the following was used: automated exposure control. COMPARISON: [facility], CT, CT LUMBAR SPINE WITHOUT CONTRAST, 11/11/2024, 10:51. [facility], CT, CT CHEST ABD PEL WO CON, 06/25/2025, 15:04. [facility], CT, CT CERVICAL SPINE WO CON, 06/25/2025, 15:04. [facility], CT, CT HEAD/BRAIN WO CON, 06/25/2025, 15:04. FINDINGS: Image quality: Excellent. Bones: No acute vertebral body compression fractures. No suspicious lytic or blastic bony lesions. No pars defects. Mild levoconvex scoliotic curvature is noted. There is mild retrolisthesis seen at L2-L3 and at L3-L4. This patient has transitional lumbar anatomy. For the purposes of this examination, the level with the last pair of ribs is considered to be T12. By this numbering scheme, the S1 level is transitional and is lumbarized, right more than left. This numbering scheme is chosen to remain consistent with the prior CT report dated 12/01/2024. Postoperative changes are seen with left-sided pedicle screws at the L4, L5, and S1 levels. Disc spacers are seen at L4-L5 and at L5-S1. There is a vertical fixation shabnam. No findings of hardware failure or hardware loosening are seen. There has been removal of portions of the posterior elements. Bone grafting material is noted. T12-L1: The disc height is relatively well preserved. Mild generalized disc bulge is seen. Mild bilateral neural foraminal narrowing is seen. Mild central canal narrowing is seen. When comparison is made with the prior images, these findings are similar. L1-L2: The disc height is relatively well preserved paired partially bridging anterior osteophytes are seen. Moderate generalized disc bulge is seen. There is at least moderate bilateral neural narrowing seen. Mild central canal narrowing is seen. When comparison is made with the prior images, these findings are similar. L2-L3: At least moderate loss of disc height is seen. Endplate irregularity and sclerosis can be seen. At least moderate disc bulge is seen which is eccentric to the left. There is a superimposed central disc osteophyte protrusion. Mild facet joint hypertrophy is seen. Moderate to severe bilateral neural foraminal narrowing is seen. At least moderate central canal narrowing is seen. When comparison is made with the prior images, these findings are similar. L3-L4: Moderate loss of disc height is seen. Endplate irregularity and sclerosis can be seen. Moderate generalized disc bulge is seen. Moderate facet joint hypertrophy is seen. There is at least moderate bilateral neural narrowing seen. Mild central canal narrowing is seen. Portions of the posterior elements have been removed at this level. The degree of central canal narrowing is improved. L4-L5: There are postoperative changes seen at this level. At least moderate disc bulge is seen which is eccentric to the right. There is a superimposed central disc osteophyte protrusion. At least moderate facet hypertrophy is seen. There is moderate to severe right-sided and [id number] left-sided neural narrowing. Moderate central canal narrowing is seen. When comparison is made with the prior images, these findings are similar. L5-S1: There is postoperative change seen at this level. At least moderate disc bulge is seen which is eccentric to the right. Moderate to prominent facet hypertrophy can be seen. There is at least moderate bilateral neural narrowing. Mild central canal narrowing is seen. When comparison is made with the prior images, these findings are similar. S1-S2: There is a transitional, rudimentary disc seen at this level. There is at least moderate right-sided and [id number] left-sided neural narrowing. Mild central canal narrowing is seen. Soft tissues: No retroperitoneal masses or hematomas. Visualized aorta is normal in caliber. Atherosclerotic calcification is noted. A normal appendix is noted. IMPRESSION: No [place] acute posttraumatic abnormality is seen. Postoperative hardware is seen, without complication observed. Multiple levels of significant lumbar spine degenerative change can be seen which are similar to the prior CT. Dictated by: Frantz Argueta M.D. on 06/25/2025 at 15:06 Approved by: Frantz Argueta M.D. on 06/25/2025 at 15:12
--- NOTE | 2025-06-25 15:03 | DI.CT.S_ITS ---
PROCEDURE: CT CHEST ABD PEL WO CON INDICATIONS: multiple falls, recent lumbar surgery TECHNIQUE: After the administration of oral contrast, 5 mm thick sections acquired from the lung apices to the symphysis pubis. 5 mm thick coronal and sagittal reformats acquired, with additional 7 mm coronal MIP reformats through the lungs. For radiation dose reduction, the following was used: automated exposure control, adjustment of mA and/or kV according to patient size. COMPARISON: [facility], CT, CT LUMBAR SPINE WITHOUT CONTRAST, 11/11/2024, 10:51. [facility], CT, CT CERVICAL SPINE WO CON, 06/25/2025, 15:04. [facility], CT, CT LUMBAR SPINE WO CON, 06/25/2025, 15:04. [facility], CT, CT HEAD/BRAIN WO CON, 06/25/2025, 15:04. FINDINGS: Image quality: There is streak artifact seen through the upper abdomen. This study is limited by lack of IV contrast. CHEST: Lower Neck: No enlarged lymph nodes. Thyroid: The thyroid is small in size. Axillae: No enlarged lymph nodes. Chest Wall: Unremarkable. Bones: Sternotomy wires are seen. Lungs and Pleura: No pneumothorax or pleural effusions. No consolidation or suspicious nodules. Heart: Dense coronary calcification can be seen. Heart size is normal. No pericardial effusion. Thoracic Vessels: The aorta and pulmonary arteries demonstrate normal size. Mediastinum and [place]: No enlarged lymph nodes. Esophagus: No wall thickening. There is a small hiatal hernia. ABDOMEN: Liver: No solid mass. Gallbladder: No radiopaque gallstones or wall thickening. Biliary ducts: No biliary dilation. Pancreas: No ductal dilation. Spleen: Size is within normal limits. Adrenal Glands: No adrenal nodules. Kidneys and Ureters: No hydronephrosis. No solid mass. No complex renal cystic lesion which requires follow up. Stomach and Bowel: Normal colonic caliber, without significant wall thickening. No dilated loops of small bowel are seen. A normal appendix is noted. Peritoneum: No abnormal intraperitoneal fluid. No free air. Ventral Wall: No hernia. Abdominal Nodes: No retroperitoneal or mesenteric adenopathy by size criteria. Vessels: Aorta and inferior vena cava are normal in size. Atherosclerotic calcification is noted. PELVIS: Pelvic Organs: Unremarkable. Bladder: Unremarkable. Pelvic Nodes: No enlarged lymph nodes. Miscellaneous: There is a mild fat containing right inguinal hernia. Left groin clips are seen. There is a right gluteal intramuscular hematoma, as on series 2, image 188, measuring 4.6 cm. Bones: No aggressive osseous abnormality. Cervical spine fixation hardware is noted. Lumbar spine postoperative and degenerative changes are seen. Mild levoconvex scoliotic curvature is noted. IMPRESSION: No [place] acute posttraumatic abnormality is identified. Lumbar spine postoperative and degenerative changes are seen. (Please see the accompanying lumbar CT report.) Additional findings: Sternotomy Dense coronary artery calcification Small hiatal hernia Mild fat containing right inguinal hernia Left groin clips Right gluteal intramuscular hematoma Dictated by: Frantz Argueta M.D. on 06/25/2025 at 14:58 Approved by: Frantz Argueta M.D. on 06/25/2025 at 15:05
[2025-06-25 15:23] LABS: Add Manual Diff / Slide Review NO; Hematocrit 40.3 % (41-53); Hemoglobin 13.7 g/dL (13.5-17.5); Lymphocytes Absolute Auto 400 /uL (1100-4500); Mean Corpuscular HGB Conc 33.9 % (30-36); Mean Corpuscular Hemoglobin 29.9 PG (26-34); Mean Corpuscular Volume 88.3 fL (80-100); Platelet Count 288 X10^3/uL (150-400)
[2025-06-25 15:25] LABS: INR 1.4 (0.9-1.3); Prothrombin Time 16.0 SECONDS (9.4-12.5)
[2025-06-25 15:27] LABS: PTT Partial Thromboplastin Tim 30 SECONDS (25.1-36.5)
[2025-06-25 15:33] LABS: Alanine Aminotransferase 111 IU/L (<50); Albumin 4.4 g/dL (3.5-5.0); Albumin Globulin Ratio 1.5 (1.0-2.8); Alkaline Phosphatase 60 U/L (38-126); Blood Urea Nitrogen 25 mg/dL (9-20); Calcium 10.7 mg/dL (8.4-10.2); Carbon Dioxide 21 mmol/L (22-32); Chloride 104 mmol/L (98-107); Estimated Glomerular Filt Rate > 60 mL/min (>60); Ethanol (ETOH) < 10 mg/dL (<10); Globulin 3.0 g/dL (1.7-4.1); Glucose 124 mg/dL (70-99); HEMOLYSIS 46 (0-50); Potassium 4.3 mmol/L (3.4-5.1); Sodium 137 mmol/L (137-145); Total Protein 7.4 g/dL (6.3-8.2)
[2025-06-25 15:50] LABS: Procalcitonin 12.2 ng/mL (<0.5); Troponin I 0.156 ng/mL (0.01-0.034)
[2025-06-25 15:53] LABS: UR Morphine/Opiate cutoff 300 Negative (Negative); Ur Specific Gravity Normal (Normal); Urine MDMA Negative (Negative); Urine Methamphetamines Negative (Negative); Urine Tetrahydrocannabinol Positive (Negative); Urine Tricyclic Antidepressant Negative (Negative)
--- NOTE | 2025-06-25 15:59 | DI.RAD.S_ITS ---
PROCEDURE: XR KNEE LT 3V INDICATIONS: pain s/p fall TECHNIQUE: 3 views of the knee were acquired. COMPARISON: [facility], CR, XR KNEE RT 3V, 06/25/2025, 16:05. [facility], CT, CT CHEST ABD PEL WO CON, 06/25/2025, 15:04. [facility], CT, CT LUMBAR SPINE WO CON, 06/25/2025, 15:04. [facility], CT, CT CERVICAL SPINE WO CON, 06/25/2025, 15:04 5. [facility], CT, CT HEAD/BRAIN WO CON, 06/25/2025, 15:04. FINDINGS: Bones: No fractures or dislocations. No suspicious bony lesions. Soft tissues: No joint effusion. No suspicious soft tissue calcifications. Soft tissue clips can be seen involving the distal IMPRESSION: No acute bony abnormality is seen on these plain films. Postoperative and degenerative changes are seen. If it would be helpful for clinical management decision making, please consider a dedicated, scheduled knee MRI for further evaluation (assuming that there is no contraindication). Dictated by: Frantz Argueta M.D. on 06/25/2025 at 16:37 Approved by: Frantz Argueta M.D. on 06/25/2025 at 16:38
--- NOTE | 2025-06-25 15:59 | DI.RAD.S_ITS ---
PROCEDURE: XR KNEE RT 3V INDICATIONS: pain s/p fall TECHNIQUE: 3 views of the knee were acquired. COMPARISON: [facility], CR, XR KNEE LT 3V, 06/25/2025, 16:05. [facility], CT, CT CHEST ABD PEL WO CON, 06/25/2025, 15:04. [facility], CT, CT LUMBAR SPINE WO CON, 06/25/2025, 15:04. [facility], CT, CT CERVICAL SPINE WO CON, 06/25/2025, 15:04. [facility], CT, CT HEAD/BRAIN WO CON, 06/25/2025, 15:04. FINDINGS: Bones: No fractures or dislocations. No suspicious bony lesions. There is mild medial femorotibial joint space narrowing seen, with associated remodeling changes including subchondral sclerosis and osteophyte formation along the jointline. Soft tissues: There is a small joint effusion. No suspicious soft tissue calcifications. IMPRESSION: Small joint effusion. No acute bony abnormality is seen. Underlying degenerative changes are seen. If it would be helpful for clinical management decision making, please consider a dedicated, scheduled knee MRI for further evaluation (assuming that there is no contraindication). Dictated by: Frantz Argueta M.D. on 06/25/2025 at 16:36 Approved by: Frantz Argueta M.D. on 06/25/2025 at 16:37
[2025-06-25 16:04] LABS: Lactate (Lactic Acid) 3.2 mmol/L (0.7-2.1)
[2025-06-25 16:14] LABS: Creatine Kinase 41271 U/L (55-170)
[2025-06-25] MEDS: SODIUM CHLORIDE 0.9% 1,000 ML 1000 ML IV ×2 (16:14→16:15)
[2025-06-25 17:19] LABS: Reflexed Lactate in 2 Hours Y
[2025-06-25 17:52] LABS: Troponin I 0.130 ng/mL (0.01-0.034)
[2025-06-25 18:06] LABS: Lactate 2HR (Lactic Acid Rflx) 1.9 mmol/L (0.7-2.1)
--- NOTE | 2025-06-25 18:29 | PM.HP.1 ---
History of Present Illness History of Present Illness Date Patient Seen: 06/25/25 Time Patient Seen: 18:30 Chief complaint: multiple falls, recent spinal surgery Narrative: He was an 84-year-old male with a history of hypertension, hyperlipidemia, CAD, and CABG. He was history of 2 back surgeries, 1 which was recently and on June 15. He was apparently been doing poorly since that time and had multiple falls. He would 3 recent falls, unclear if these were today or yesterday. He was found on the ground by his son but really can not state how long he was down for. In the ED, he was found to have rhabdomyolysis and volume depletion. The patient does note that he was extremely weak. He denies any nausea, or dyspnea. He was having protracted constipation after surgery but did have a bowel movement recently. He hurt both elbows when falling. He can move both of these with pain but normal range of motion. [facility] Social History household members: none alcohol intake: never Meds Home Medications and Allergies Home Medications ?Medication ?Instructions ?Recorded ?Confirmed ?Type ASPIRIN (#[facility]IR[facility]) 81 mg PO Q DAY ##0 01/12/11 02/03/20 History atorvastatin 40 mg tablet (Lipitor) 20 mg PO HS ##0 01/12/11 02/03/20 History metoprolol tartrate 25 mg tablet 12.5 mg PO BID 02/03/20 02/03/20 History Allergies Allergy/AdvReac Type Severity Reaction Status Date / Time IODINE Allergy Severe ALL OVER Uncoded 02/03/20 13:45 BODY RASH Review of Systems Review of Systems Narrative: All else reviewed and otherwise unremarkable except as noted in the history and physical. Exam Vital Signs (past 8 hours): - 06/25/25 14:20 06/25/25 14:20 06/25/25 14:30 Temperature 98.2 F Pulse Rate 83 84 Respiratory Rate 16 20 Blood Pressure 152/70 H 153/71 H Pulse Oximetry 94 95 Oxygen Delivery Method Room Air 06/25/25 14:30 06/25/25 15:00 06/25/25 15:01 Temperature Pulse Rate 85 84 86 Respiratory Rate 19 30 H 27 H Blood Pressure Pulse Oximetry 98 98 97 Oxygen Delivery Method 06/25/25 15:01 06/25/25 15:16 06/25/25 15:16 Temperature Pulse Rate 84 Respiratory Rate 21 Blood Pressure 152/110 H 181/116 H Pulse Oximetry 95 Oxygen Delivery Method 06/25/25 15:30 06/25/25 16:00 06/25/25 16:01 Temperature Pulse Rate 85 84 Respiratory Rate 30 H Blood Pressure 130/59 L Pulse Oximetry 95 92 Oxygen Delivery Method 06/25/25 16:01 06/25/25 16:30 06/25/25 16:30 Temperature Pulse Rate 83 87 Respiratory Rate Blood Pressure 148/65 H Pulse Oximetry 94 95 Oxygen Delivery Method 06/25/25 17:00 06/25/25 17:01 06/25/25 17:05 Temperature Pulse Rate 90 89 Respiratory Rate Blood Pressure 157/67 H Pulse Oximetry 94 95 Oxygen Delivery Method 06/25/25 17:05 06/25/25 17:30 06/25/25 17:31 Temperature Pulse Rate 90 92 H Respiratory Rate Blood Pressure 156/66 H Pulse Oximetry 96 97 Oxygen Delivery Method 06/25/25 17:31 06/25/25 17:42 06/25/25 17:42 Temperature Pulse Rate 92 H 91 H Respiratory Rate Blood Pressure 138/60 Pulse Oximetry 97 Oxygen Delivery Method 06/25/25 18:00 06/25/25 18:01 06/25/25 18:01 Temperature Pulse Rate 90 88 Respiratory Rate 21 21 Blood Pressure 149/63 H Pulse Oximetry 95 Oxygen Delivery Method Room Air Oxygen Delivery Method Room Air Narrative Exam Narrative: NAD, alert and oriented, fluent speech, calm. He appears weak. Oral mucosa is dry. Normocephalic skull, EOMI, anicteric sclera, symmetric pupils. Oropharynx unremarkable, no droop. Neck supple, midline trachea, no adenopathy. Lungs clear, normal rate and effort. Heart regular, no murmur gallop or rub. Abdomen is soft, non distended and non tender. Extremities are free of edema. Skin is free of rash or lesions. Joints are not swollen or deformed. Judgment appears to be normal. Normal range of motion of elbows and hips. Objective ECG Impression: Intervals Cora Rate: 84 P: 34 WI: 162 QRS: 5 QRSD: 88 T: 57 QT: 370 QTc: 437 Interpretive Statements Normal sinus rhythm T wave abnormality, consider anterior ischemia Imaging Multiple studies:: Radiologist's impression: Bilateral knee x-rays: No fxr. Lumbar spine CT: IMPRESSION: No [place] acute posttraumatic abnormality is seen. Postoperative hardware is seen, without complication observed. Multiple levels of significant lumbar spine degenerative change can be seen which are similar to the prior CT. Chest, abdomen, pelvis CT: No [place] acute posttraumatic abnormality is identified. Lumbar spine postoperative and degenerative changes are seen. (Please see the accompanying lumbar CT report.) Additional findings: Sternotomy Dense coronary artery calcification Small hiatal hernia Mild fat containing right inguinal hernia Left groin clips Right gluteal intramuscular hematoma Head CT: No acute intracranial hemorrhage is seen. No acute intracranial pathology. Cervical spine CT: No displaced fracture or traumatic subluxation. Intact appearing anterior fixation hardware seen. Labs 06/25/25 14:19 06/25/25 14:19 Labs: Laboratory Results - last 24 hr 06/25/25 06/25/25 06/25/25 14:19 15:00 15:35 WBC 11.5 H RBC 4.57 Hgb 13.7 Hct 40.3 L MCV 88.3 MCH 29.9 MCHC 33.9 RDW 13.5 Plt Count 288 Neut % (Auto) 88.5 H Lymph % (Auto) 3.8 L Mcdonald % (Auto) 7.2 Eos % (Auto) 0.0 L Baso % (Auto) 0.5 Neut # (Auto) 55116 H Lymph # (Auto) 400 L Mcdonald # (Auto) 800 Eos # (Auto) 0 Baso # (Auto) 100 PT 16.0 H INR 1.4 H APTT 30 Sodium 137 Potassium 4.3 Chloride 104 Carbon Dioxide 21 L BUN 25 H Creatinine 1.12 Estimated GFR > 60 BUN/Creatinine Ratio 22.3 H Glucose 124 H POC Whole Bld Glucose Lactate 3.2 H Calcium 10.7 H Total Bilirubin 1.4 H AST 565 H ALT 111 H Alkaline Phosphatase 60 Total Creatine Kinase 13745 H Troponin I 0.156 H* Total Protein 7.4 Albumin 4.4 Globulin 3.0 Albumin/Globulin Ratio 1.5 Procalcitonin 12.2 H Urine RBC 0-1/hpf Urine WBC 0-1/hpf Ur Squamous Epith Cells 0-1 /hpf Amorphous Sediment 3+ Urine Bacteria Occasional (0-1) Granular Casts 1-5/lpf Urine Mucus 1+ H Vol Urine Centrifuged 10ml (spun) U Opiates 300ng/mL cut Negative Ur Oxycodone Screen Positive H Urine Methadone Screen Negative Ur Barbiturates Screen Negative U Tricyclic Antidepress Negative Ur Phencyclidine Scrn Negative Ur Amphetamines Screen Negative U Methamphetamines Scrn Negative Ur MDMA Scrn (Ecstasy) Negative U Benzodiazepines Scrn Negative Urine Cocaine Screen Negative U Marijuana (THC) Screen Positive H Urine pH Normal Urine Specific [place] Normal Ethyl Alcohol < 10 Ur Creatinine Normal 06/25/25 06/25/25 06/25/25 15:55 17:10 17:45 WBC RBC Hgb Hct MCV MCH MCHC RDW Plt Count Neut % (Auto) Lymph % (Auto) Mcdonald % (Auto) Eos % (Auto) Baso % (Auto) Neut # (Auto) Lymph # (Auto) Mcdonald # (Auto) Eos # (Auto) Baso # (Auto) PT INR APTT Sodium Potassium Chloride Carbon Dioxide BUN Creatinine Estimated GFR BUN/Creatinine Ratio Glucose POC Whole Bld Glucose 121 H Lactate 1.9 Calcium Total Bilirubin AST ALT Alkaline Phosphatase Total Creatine Kinase 97466 H Troponin I 0.130 H* Total Protein Albumin Globulin Albumin/Globulin Ratio Procalcitonin Urine RBC Urine WBC Ur Squamous Epith Cells Amorphous Sediment Urine Bacteria Granular Casts Urine Mucus Vol Urine Centrifuged U Opiates 300ng/mL cut Ur Oxycodone Screen Urine Methadone Screen Ur Barbiturates Screen U Tricyclic Antidepress Ur Phencyclidine Scrn Ur Amphetamines Screen U Methamphetamines Scrn Ur MDMA Scrn (Ecstasy) U Benzodiazepines Scrn Urine Cocaine Screen U Marijuana (THC) Screen Urine pH Urine Specific [place] Ethyl Alcohol Ur Creatinine Assessment & Plan Assessment & Plan narrative: 1. Traumatic rhabdomyolysis, active. 2. Volume depletion, active. 3. Lactic acidosis related to volume depletion, active. 4. Back pain and recent back surgery with no imaging findings for acute disruption, active. 5. CAD and CABG with mildly elevated troponin, active. 6. Hypertension, stable. 7. HLD, stable. PLAN: -IV fluids and trend CPK. -trend lactic acid with fluids. -physical therapy evaluation tomorrow. Anticipate need for [facility] facility. -Tylenol for pain, avoid opiates if possible given his constipation propensity. -continue baseline medications for CAD and hypertension including metoprolol, aspirin, and atorvastatin. Anticipate greater than 2 midnights in the hospital, supports inpatient status. DNR, confirmed tonight. Son is proxy decision maker. Time-Based Coding :: 35 spent with patient and on the chart (including review of chart, obtaining history, exam, reviewing outside data, placing orders, documenting exam and treatment plan, and counseling patient) on 06/25. Quality MIPS - Admit I confirm the patient?s Advance Care Plan is present, Code status is documented, Surrogate decision maker is in patient?s record [If Yes, STOP here]: Yes MIPS - Meds 'Current medications' to include all prescriptions, [id number] products, herbals, cannabis/cannabidiol products, and vitamin/mineral/dietary (nutritional) supplements. I have utilized all available resources to obtain, update, or review the patient?s current medications. [If Yes, STOP here]: Yes
--- NOTE | 2025-06-25 18:57 | PC.NURSE ---
Pt arrived at 1830 Very drowsy, unable to answer question due to being asleep Dsg to back w/ some drainage noted. Call light w/in reach, b ed alarm on for pt safety. Continue w/plan of care.
[2025-06-25] MEDS: SODIUM CHLORIDE 0.9% 1,000 ML 100 ML IV (19:58)
[2025-06-25] MEDS: HEPARIN 5,000 UNIT/ML VIAL 5000 UNIT SUBCUT (22:01)
[2025-06-25] MEDS: ASPIRIN 81 MG CHEW TAB PO (22:01)
[2025-06-25] MEDS: METOPROLOL IR 25 MG TABLET 12.5 MG PO (22:02)
[2025-06-25] MEDS: PANTOPRAZOLE DR 40 MG TABLET PO (22:02)
[2025-06-25] MEDS: DOCUSATE 100 MG CAPSULE PO (22:02)
[2025-06-25] MEDS: PRAZOSIN 1 MG CAPSULE PO (22:02)
[2025-06-25] MEDS: SENNOSIDES 8.6 MG TABLET 17.2 MG PO (22:02)
[2025-06-26] VITALS: BP 129/41; PULSE 84; RESP 16; TEMP 37.1; O2SAT 98
[2025-06-26 00:03] VITALS: O2SAT 96
[2025-06-26] MEDS: SODIUM CHLORIDE 0.9% 1,000 ML 100 ML IV ×2 (04:52→15:19)
[2025-06-26 06:15] LABS: Add Manual Diff / Slide Review NO; Hematocrit 33.3 % (41-53); Hemoglobin 11.4 g/dL (13.5-17.5); Lymphocytes Absolute Auto 300 /uL (1100-4500); Mean Corpuscular HGB Conc 34.1 % (30-36); Mean Corpuscular Hemoglobin 30.5 PG (26-34); Mean Corpuscular Volume 89.3 fL (80-100); Platelet Count 204 X10^3/uL (150-400)
[2025-06-26 06:32] LABS: Alanine Aminotransferase 82 IU/L (<50); Albumin 2.9 g/dL (3.5-5.0); Albumin Globulin Ratio 1.2 (1.0-2.8); Alkaline Phosphatase 46 U/L (38-126); Blood Urea Nitrogen 30 mg/dL (9-20); Calcium 9.6 mg/dL (8.4-10.2); Carbon Dioxide 20 mmol/L (22-32); Chloride 108 mmol/L (98-107); Estimated Glomerular Filt Rate > 60 mL/min (>60); Globulin 2.4 g/dL (1.7-4.1); Glucose 177 mg/dL (70-99); HEMOLYSIS < 15 (0-50); Potassium 4.0 mmol/L (3.4-5.1); Sodium 137 mmol/L (137-145); Total Protein 5.3 g/dL (6.3-8.2)
[2025-06-26 06:47] LABS: Creatine Kinase 14391 U/L (55-170)
[2025-06-26 06:49] LABS: Troponin I 0.141 ng/mL (0.01-0.034)
[2025-06-26] MEDS: HEPARIN 5,000 UNIT/ML VIAL 5000 UNIT SUBCUT ×2 (08:30→20:12)
[2025-06-26] MEDS: METOPROLOL IR 25 MG TABLET 12.5 MG PO (08:31)
[2025-06-26] MEDS: LEVOTHYROXINE 25 MCG TABLET PO (08:31)
[2025-06-26] MEDS: DOCUSATE 100 MG CAPSULE PO (08:32)
[2025-06-26 08:52] VITALS: BP 127/45; PULSE 67; RESP 26; TEMP 37.6; O2SAT 95
[2025-06-26] MEDS: ASPIRIN 81 MG CHEW TAB PO (11:35)
--- NOTE | 2025-06-26 13:31 | PT-IP ANOTE ---
Physical Therapy order received and chart reviewed. Pt admitted after being found down. His BUN is up to 30 today and his Troponins are still trending up (0.130 and 0.141). Will hold evaluation today and check back tomorrow when he is more medically stable.
[2025-06-26] MEDS: ACETAMINOPHEN 325 MG TABLET 650 MG PO (15:28)
--- NOTE | 2025-06-26 15:34 | PC.NURSE ---
Assumed care of PT at 1500. Very lethargic, hardly able to open eyes. Oriented to self and year only. Per son at bedside, this is far from patient's baseline. Breathing is loud and through the mouth with intermittent moments of apnea. C/o pain to Backside but unable to specify further, tylenol administered per OCT. Lung sounds dim, upper airway rattly, almost snoring. Bowel sounds hypoactive. Pt c/o numbness to bilat UE/LE, cannot state when this started. Unable to move arms much d/t pain to bilat shoulders from multiple falls. Pt and son at bedside reoriented to call light. Bed in low position, call light within reach.
--- NOTE | 2025-06-26 15:37 | CM.DANOTE ---
Patient is an 84 yo male who was admitted INPT Status on 06/25/25 for GLF/Rhabdo. Pt has [facility] and [facility] for insurance and his PCP is Lico Briones. EMR was reviewed. Per , pt with hx of multiple falls and back surgeries and most recent on 06/15/25 at [facility] and returns after GLF and found down by his son and being treated for Rhabdo. Pt currently on 1LO2 and not stable for discharge yet. PT ordered but on hold due to pt's trops and will attempt again tomorrow Sun. SW met bedside with pt who was sleeping and wearing NC O2 and pt able to wake but very drowsy and easily drifts off to sleep consistently. Pt able to state he is living at home in [place] with his son Husam. Pt had initial back surgery in December 2024 this year and then follow up surgery a week and a half ago at [facility]. Pt able to say he discharged to home but unclear if he has any hx of SNF or HH. Son Husam not currently bedside. Plan: SW to follow closely in the AM for PT eval and recommendations and further discussion with pt and son regarding SNF vs HH and any further identified discharge planning needs. RAPHAEL Prescott Discharge Planning/Care Management CM Discharge Assessment Start: 06/25/25 18:41 Freq: Status: Active Protocol: Document 06/26/25 15:35 BF (Rec: 06/26/25 15:37 BF [id number]) Discharge Planning Assessment Assigned Discharge RAPHAEL Marquez Job Hand Provider Lico Briones Insurance Medicare,[facility] DPOA/Assigned POA Brother David still?? Designee Name Advance Directives? Yes: General DPOA Advance Directives Yes on File History Provided By Patient,Family Member,Medical Record Has Patient been No admitted in last 30 days? Prior Living House Arrangements Household Members children Comment Son Husam lives with patient Type of Relies on Others transporation used prior to admit Independent with ADL Yes: somewhat 's Is patient alert and Yes oriented? Needs Assistance Managing Medications,Home Chores / Shopping With Caregiver for No Another Patient/Family [facility] Facility,Home with Home Health Preference Comment SNF vs HH pending PT eval Barriers to No Discharge Discharge Plan [facility] Facility Transportation Son if home and facility van if SNF Arrangement Additional Comment Pending PT eval and recommendation for HH vs SNF Whiteboard Updated Yes in Patient Room with name and ext. # of Silo Tender Review Status In Process Please Provide Date 06/26/25 Initial DC Assessment Was Performed Next Review Type Continued Stay Review
--- NOTE | 2025-06-26 16:41 | PC.NURSE ---
During a dressing change for pt's surgical incision, an large bruise was discovered in coccyx area. The skin appears to move independently of the tissue underneath in some places and the tissue itself is hard. Unclear if this is a pressure injury or a wound from the several falls the pt sustained before being admitted to the hospital. MD [place]. See photos.
--- NOTE | 2025-06-26 16:56 | P.PN_ITS ---
Subjective <Ruthyshalini Mejiasemmanuel - Last Filed: 06/26/25 19:22> Subjective Date Patient Seen: 06/26/25 Time Patient Seen: 16:58 Interval history: CC: Falls, rhabdomyolysis HPI:? Per Dr. Fountain: He was an 84-year-old male with a history of hypertension, hyperlipidemia, CAD, and CABG. He was history of 2 back surgeries, 1 which was recently and on June 15. He was apparently been doing poorly since that time and had multiple falls. He would 3 recent falls, unclear if these were today or yesterday. He was found on the ground by his son but really cannot state how long he was down for. In the ED, he was found to have rhabdomyolysis and volume depletion. The patient does note that he was extremely weak. He denies any nausea, or dyspnea. He was having protracted constipation after surgery but did have a bowel movement recently. He hurt both elbows when falling. He can move both of these with pain but normal range of motion. ? Interval Events: 06/26 (Dr. Duran): Patient was intermittently awake during today?s visit. He says he feels the same today that he did yesterday. Son reports that patient's knees seem more swollen today. He is worried about the incision as he says it was draining clear bloody fluid two days ago and when he found his father on the floor, he was covered in blood head to toe and had been rolling around. He's also worried about the new hardware because the side bent position his father was found in is what he was told to avoid for motion after surgery. <Janet Duran MD - Last Filed: 06/26/25 20:02> Subjective Interval history: CC: Falls, rhabdomyolysis HPI:? Per Dr. Fountain: He was an 84-year-old male with a history of hypertension, hyperlipidemia, CAD, and CABG. He was history of 2 back surgeries, 1 which was recently and on June 15. He was apparently been doing poorly since that time and had multiple falls. He would 3 recent falls, unclear if these were today or yesterday. He was found on the ground by his son but really cannot state how long he was down for. In the ED, he was found to have rhabdomyolysis and volume depletion. The patient does note that he was extremely weak. He denies any nausea, or dyspnea. He was having protracted constipation after surgery but did have a bowel movement recently. He hurt both elbows when falling. He can move both of these with pain but normal range of motion. ? Patient was intermittently awake during today?s visit. He says he feels the same today that he did yesterday. Son reports that patient's knees seem more swollen today. He is worried about the incision as he says it was draining clear bloody fluid two days ago and when he found his father on the floor, he was covered in blood head to toe and had been rolling around. He's also worried about the new hardware because the side bent position his father was found in is what he was told to avoid for motion after surgery. Upon reassessment with the attending physician, the son states the incision has been draining fairly consistently since the day of surgery. It has remained serosanguineous in nature, there has been no purulence. He has had to change the dressing several times a day as it is saturated each time. The patient was more awake during the 2nd visit, complaining of pain all over. When he was turned on his left side to assess his back, he screamed expletives secondary to his pain Exam <Ruthy Jordan - Last Filed: 06/26/25 19:22> Vital Signs (past 8 hours): Fraction of Inspired Oxygen 28 SaO2/FiO2 Ratio 342 Oxygen Delivery Method Nasal Cannula Oxygen Flow Rate 1 Narrative Exam Narrative: Physical Exam: General: Somnolent during exam. No acute distress. Skin: Decreased turgor, no rash on arms or legs. Scattered healing abrasions on bilateral legs and arms, more notable at the elbows. HEENT: Dry mucous membranes, mouth breathing. NC/AT Heart: Distant heart sounds, no murmur or gallop Lungs: Labored mouth breathing with snoring when asleep, bilateral rales and coarseness. Exam limited by pain with sitting forward Abdomen: Bowel sounds normal, no tenderness. Extremities: 2+ pitting edema from bilateral knees to feet, peripheral pulses intact. Pain with movement in bilateral upper and lower extremities. Labs reviewed and notable for: CBC: Normal WBC (7.7), low RBC (3.73), low Hgb (11.4), low Hct (33.3) CMP: High chloride (108), High BUN (30), high BUN/Cr ratio (25.2), low CO? (20) Renal: Mildly elevated creatinine (1.12) Liver: High AST (360), ALT elevated (82) CK: Elevated CK (41,271 ? 32,434? 03745) Cardiac: Elevated troponin I (0.156 ? 0.130 ? 0.141), high INR (1.4), high PT (16) Protein: low total protein (5.3), low albumin (2.9) Lactate: Now normal (3.2 ? 1.9) Urine: Granular casts (1?5/hpf), 1+ mucus, 3+ amorphous sediment, occasional bacteria UDS: Positive oxycodone, marijuana Procalcitonin: Elevated (12.2) Urine culture: no growth at 16 hours ? Imaging/EC/14 ECG Impression: Intervals [place] Rate: 84 P: 34 VT: 162 QRS: 5 QRSD: 88 T: 57 QT: 370 QTc: 437 Interpretive Statements Normal sinus rhythm T wave abnormality, consider anterior ischemia ? 06/25 Bilateral knee x-rays: No fxr. ? 06/[address]: IMPRESSION: No [place] acute posttraumatic abnormality is seen. Postoperative hardware is seen, without complication observed. Multiple levels of significant lumbar spine degenerative change can be seen which are similar to the prior CT. ? 06/25 Chest, abdomen, pelvis CT: No [place] acute posttraumatic abnormality is identified. Lumbar spine postoperative and degenerative changes are seen. (Please see the accompanying lumbar CT report.) ? Additional findings: Sternotomy Dense coronary artery calcification Small hiatal hernia Mild fat containing right inguinal hernia Left groin clips Right gluteal intramuscular hematoma ? 06/[address]: No acute intracranial hemorrhage is seen. No acute intracranial pathology. ? 06/[address]: No displaced fracture or traumatic subluxation. Intact appearing anterior fixation hardware seen. ? Intake/Output: In 3740, Out 275, Urine 0.15ml/kg/hr, Stool x1, Emesis x0. Balance +3465 ? Vitals reviewed and notable for: BP: 127-180/41-116, high x9, low x3 Temp: 98.2-99.7, high x1 HR: 67-92, high x4 Resp: 16-30, high x4 (q2 vitals) <Janet Duran MD - Last Filed: 06/26/25 20:02> Narrative Exam Narrative: Physical Exam: General: Somnolent during exam. No acute distress. Skin: Decreased turgor, no rash on arms or legs. Scattered healing abrasions on bilateral legs and arms, more notable at the elbows. Right elbow with significant ecchymosis HEENT: Dry mucous membranes, mouth breathing. NC/AT Heart: Distant heart sounds, no murmur or gallop Lungs: Labored mouth breathing with snoring when asleep, bilateral rales and coarseness. Exam limited by pain with sitting forward Abdomen: Bowel sounds normal, no tenderness. Nondistended, soft. No organomegaly or masses appreciated Extremities: 2+ pitting edema from bilateral knees to feet, peripheral pulses intact. Pain with movement in bilateral upper and lower extremities. Labs reviewed and notable for: CBC: Normal WBC (7.7), low RBC (3.73), low Hgb (11.4), low Hct (33.3) CMP: High chloride (108), High BUN (30), high BUN/Cr ratio (25.2), low CO? (20) Renal: Mildly elevated creatinine (1.12) Liver: High AST (360), ALT elevated (82) CK: Elevated CK (41,271 ? 32,434? 44609) Cardiac: Elevated troponin I (0.156 ? 0.130 ? 0.141), high INR (1.4), high PT (16) Protein: low total protein (5.3), low albumin (2.9) Lactate: Now normal (3.2 ? 1.9) Urine: Granular casts (1?5/hpf), 1+ mucus, 3+ amorphous sediment, occasional bacteria UDS: Positive oxycodone, marijuana Procalcitonin: Elevated (12.2) Urine culture: no growth at 16 hours ? Imaging/EC/14 ECG Impression: Intervals [place] Rate: 84 P: 34 VT: 162 QRS: 5 QRSD: 88 T: 57 QT: 370 QTc: 437 Interpretive Statements Normal sinus rhythm T wave abnormality, consider anterior ischemia ? 06/25 Bilateral knee x-rays: No fxr. ? 06/[address]: IMPRESSION: No [place] acute posttraumatic abnormality is seen. Postoperative hardware is seen, without complication observed. Multiple levels of significant lumbar spine degenerative change can be seen which are similar to the prior CT. ? 06/25 Chest, abdomen, pelvis CT: No [place] acute posttraumatic abnormality is identified. Lumbar spine postoperative and degenerative changes are seen. (Please see the accompanying lumbar CT report.) ? Additional findings: Sternotomy Dense coronary artery calcification Small hiatal hernia Mild fat containing right inguinal hernia Left groin clips Right gluteal intramuscular hematoma ? 06/[address]: No acute intracranial hemorrhage is seen. No acute intracranial pathology. ? 06/[address]: No displaced fracture or traumatic subluxation. Intact appearing anterior fixation hardware seen. ? Intake/Output: In 3740, Out 275, Urine 0.15ml/kg/hr, Stool x1, Emesis x0. Balance +3465 ? Vitals reviewed and notable for: BP: 127-180/41-116, high x9, low x3 Temp: 98.2-99.7, high x1 HR: 67-92, high x4 Resp: 16-30, high x4 (q2 vitals) Objective <Ruthy Risdon - Last Filed: 06/26/25 19:22> Labs 06/26/25 04:55 06/26/25 05:04 Labs: Laboratory Results - last 24 hr 06/25/25 06/25/25 06/26/25 17:10 17:45 04:55 WBC 7.7 RBC 3.73 L Hgb 11.4 L Hct 33.3 L MCV 89.3 MCH 30.5 MCHC 34.1 RDW 13.8 Plt Count 204 Neut % (Auto) 89.9 H Lymph % (Auto) 4.3 L Mcdowell % (Auto) 5.6 Eos % (Auto) 0.0 L Baso % (Auto) 0.2 Neut # (Auto) 6900 Lymph # (Auto) 300 L Mcdowell # (Auto) 400 Eos # (Auto) 0 Baso # (Auto) 0 Sodium Potassium Chloride Carbon Dioxide BUN Creatinine Estimated GFR BUN/Creatinine Ratio Glucose Lactate 1.9 Calcium Total Bilirubin AST ALT Alkaline Phosphatase Total Creatine Kinase 45618 H 61077 H D Troponin I 0.130 H* 0.141 H* Total Protein Albumin Globulin Albumin/Globulin Ratio 06/26/25 05:04 WBC RBC Hgb Hct MCV MCH MCHC RDW Plt Count Neut % (Auto) Lymph % (Auto) Mcdowell % (Auto) Eos % (Auto) Baso % (Auto) Neut # (Auto) Lymph # (Auto) Mcdowell # (Auto) Eos # (Auto) Baso # (Auto) Sodium 137 Potassium 4.0 Chloride 108 H Carbon Dioxide 20 L BUN 30 H Creatinine 1.19 Estimated GFR > 60 BUN/Creatinine Ratio 25.2 H Glucose 177 H Lactate Calcium 9.6 Total Bilirubin 0.9 AST 360 H ALT 82 H Alkaline Phosphatase 46 Total Creatine Kinase Troponin I Total Protein 5.3 L Albumin 2.9 L Globulin 2.4 Albumin/Globulin Ratio 1.2 [facility] <Ruthy Jordan - Last Filed: 06/26/25 19:22> Social History household members: children Smoking Status: Former smoker alcohol intake: former Assessment & Plan <Ruthy Jordan - Last Filed: 06/26/25 19:22> Assessment & Plan narrative: A/P: 84-year-old male with history of hypertension, hyperlipidemia, CAD s/p CABG, and recent lumbar spine surgery on June 15 presenting with multiple falls and prolonged immobilization resulting in severe rhabdomyolysis with CK >40,000. Complicated by significant volume depletion with third-spacing, stage II sacral pressure injury, and postoperative wound drainage. ? #Severe Rhabdomyolysis CK elevation from 41,271 to 32,434 indicates massive skeletal muscle breakdown. Traumatic rhabdomyolysis from prolonged immobilization after falls is the likely etiology. The declining CK suggests peak has been reached, typically occurring at 24-72 hours. -CK daily -Monitor urine output with goal 1-3 mL/kg/hour (~75-225 mL/hr) -Daily BMP to monitor creatinine and electrolytes -Hold IV fluid resuscitation due to third spacing -Consider IV albumin -Hold rosuvastatin due to rhabdomyolysis as recommended by the [employer] ?? #Volume Depletion Elevated BUN/creatinine ratio of 25.2 and oliguria (0.15 mL/kg/hr) indicate significant volume depletion. Clinical signs include confusion and extremity weakness, consistent with moderate to severe dehydration. Edema on exam in conjunction with low protein and albumin indicated fluid is third spacing. -Monitor strict intake and output -Goal-directed therapy based on urine output response weighed against volume overload due to third spacing ?? #Decubitus Ulcer Stage II sacral decubitus ulcer found on exam. Dressed per hospital protocol (sacral Meplex dressing and barrier cream) -Daily wound assessment and documentation -Nutritional assessment for protein and calorie needs -Turning schedule every 2 hours to relieve pressure -Nutritional supplementation for wound healing -Up to chair TID for pressure relief -Moist wound healing environment with appropriate dressings ? #Recent Lumbar Spine Surgery Postoperative serosanguinous drainage from surgical site. Seromas form from inflammatory gradient and fluid translocation without structural channel damage. No evidence of hardware complications on imaging. -Monitor surgical site for signs of infection or dehiscence -Assess drainage volume and character daily -Acetaminophen 650 mg q6 hours PRN for pain management -Oxycodone 5 mg q4 hours PRN for breakthrough pain -Sterile dressing changes as needed for drainage -Avoid excessive manipulation of surgical sight ? #Lactic Acidosis Elevated lactate (3.2 ? 1.9) improving with fluid resuscitation. Type A lactic acidosis from tissue hypoperfusion due to volume depletion. -Lactate daily ?? #Elevated Cardiac Troponin Troponin elevation (0.156 ? 0.130 ? 0.141) in setting of rhabdomyolysis. No correlation between troponin and CK levels in rhabdomyolysis patients, indicating cardiac injury independent of skeletal muscle breakdown. His elevated troponin likely reflects myocardial injury from rhabdomyolysis rather than acute coronary syndrome, as troponin elevations occur in many rhabdomyolysis patients. -Serial troponins to assess for dynamic changes -Request recent ECG and echo records from [facility] -Repeat ECG if chest pain develops -Echocardiogram if ECG on 06/25 is changed from pre-operative ECG at [facility] -Continue home aspirin 81 mg daily -Continue home metoprolol -Continue home prazosin -Hold rosuvastatin as above ?? #Hypertensive Episodes Multiple BP readings >180/120 mmHg without evidence of acute target organ damage. This represents severe hypertension rather than hypertensive emergency. -Continue frequent BP monitoring -Avoid acute BP reduction with IV medications -Continue home meds as above ?? #History of Falls Three recent falls with prolonged ground time. Advanced age and recent surgery are risk factors for perioperative falls. -Physical therapy evaluation for fall risk assessment -Fall precautions and bed alarm -Avoid escalating opioid analgesics (increase fall risk) ?? #Coronary Artery Disease Status Post CABG -Continue aspirin 81 mg daily -Hold statin as above ? #Hyperlipidemia -Hold statin as above -Continue home ezetimibe ? #Hypothyroid -Continue home levothyroxine ? DVT Prophylaxis: -Heparin SQ ? Code Status: -DNR ? Disposition: -Anticipate >2 midnights, appropriate for inpatient -PT/OT evaluation for SNF or home discharge planning -Needs improvement in urine output and mental status before safe discharge Time-Based Coding :: [TOTAL MINUTES] spent with patient and on the chart (including review of chart, obtaining history, exam, reviewing outside data, placing orders, documenting exam and treatment plan, and counseling patient) on [DATE]. <Janet Duran MD - Last Filed: 06/26/25 20:02> Assessment & Plan narrative: A/P: 84-year-old male with history of hypertension, hyperlipidemia, CAD s/p CABG, and recent lumbar spine surgery on June 15 presenting with multiple falls and prolonged immobilization resulting in severe rhabdomyolysis with CK >40,000. Complicated by significant volume depletion with third-spacing, stage II sacral pressure injury, and postoperative wound drainage. ? #Severe Rhabdomyolysis CK elevation from 41,271 to 32,434 indicates massive skeletal muscle breakdown. Traumatic rhabdomyolysis from prolonged immobilization after falls is the likely etiology. The declining CK suggests peak has been reached, typically occurring at 24-72 hours. Current CPK is down to 14,391. -CK daily -Monitor urine output with goal 1-3 mL/kg/hour (~75-225 mL/hr) -Daily BMP to monitor creatinine and electrolytes -Hold IV fluid resuscitation due to third spacing -Hold rosuvastatin due to rhabdomyolysis as recommended by the [employer] ?? #Volume Depletion Elevated BUN/creatinine ratio of 25.2 and oliguria (0.15 mL/kg/hr) indicate significant volume depletion. Clinical signs include confusion and extremity weakness, consistent with moderate to severe dehydration. Edema on exam in conjunction with low protein and albumin indicated fluid is third spacing. -Monitor strict intake and output -Goal-directed therapy based on urine output response weighed against volume overload due to third spacing ?? #Decubitus Ulcer Stage II sacral decubitus ulcer found on exam. -Daily wound assessment and documentation -Nutritional assessment for protein and calorie needs -Turning schedule every 2 hours to relieve pressure -Nutritional supplementation for wound healing -Up to chair TID for pressure relief -Moist wound healing environment with appropriate dressings ? #Recent Lumbar Spine Surgery Postoperative serosanguinous drainage from surgical site. Seromas form from inflammatory gradient and fluid translocation without structural channel damage. No evidence of hardware complications on imaging. -Monitor surgical site for signs of infection or dehiscence -Assess drainage volume and character daily -Acetaminophen 650 mg q6 hours PRN for pain management -Oxycodone 5 mg q4 hours PRN for breakthrough pain -Sterile dressing changes as needed for drainage -Avoid excessive manipulation of surgical sight ? #Lactic Acidosis Elevated lactate (3.2 - 1.9) improving with fluid resuscitation. Type A lactic acidosis from tissue hypoperfusion due to volume depletion. ?? #Elevated Cardiac Troponin Troponin elevation (0.156 - 0.130 - 0.141) in setting of rhabdomyolysis. No correlation between troponin and CK levels in rhabdomyolysis patients, indicating cardiac injury independent of skeletal muscle breakdown. His elevated troponin likely reflects myocardial injury from rhabdomyolysis rather than acute coronary syndrome, as troponin elevations occur in many rhabdomyolysis patients. -Serial troponins to assess for dynamic changes -Request recent ECG and echo records from [facility] -Repeat ECG if chest pain develops -Echocardiogram if ECG on 06/25 is changed from pre-operative ECG at [facility] -Continue home aspirin 81 mg daily -Continue home metoprolol -Continue home prazosin -Hold rosuvastatin as above ?? #Hypertensive Episodes Multiple BP readings >180/120 mmHg without evidence of acute target organ damage. This represents severe hypertension rather than hypertensive emergency. -Continue frequent BP monitoring -Avoid acute BP reduction with IV medications -Continue home meds as above. Current blood pressure is 125/42. ?? #History of Falls Three recent falls with prolonged ground time. Advanced age and recent surgery are risk factors for perioperative falls. -Physical therapy evaluation for fall risk assessment -Fall precautions and bed alarm -Avoid escalating opioid analgesics (increase fall risk) -anticipate he will require halfway facility for rehab at discharge due to significant debility and generalized weak ?? #Coronary Artery Disease Status Post CABG -Continue aspirin 81 mg daily -Hold statin as above ? #Hyperlipidemia -Hold statin as above -Continue home ezetimibe ? #Hypothyroid -Continue home levothyroxine ? DVT Prophylaxis: -Heparin SQ ? Code Status: -DNR ? Disposition: -Anticipate >2 midnights, appropriate for inpatient -PT/OT evaluation for SNF or home discharge planning -Needs improvement in urine output and mental status before safe discharge Note was created and prepared by Ruthy Jordan, MS3 Patient was seen and evaluated independently. Note was reviewed and edited where needed. Agree with assessment and plan as noted Quality <Ruthy Jordan - Last Filed: 06/26/25 19:22> VTE Deep Vein Thrombosis/Pulmonary Embolism Present on Admission: No
[2025-06-26 19:00] VITALS: BP 125/42; PULSE 73; RESP 18; TEMP 37.1; O2SAT 95
[2025-06-26 20:00] VITALS: BP 133/52; PULSE 77; RESP 20; TEMP 36.8; O2SAT 95
[2025-06-26] MEDS: PANTOPRAZOLE DR 40 MG TABLET PO (20:15)
[2025-06-26] MEDS: PRAZOSIN 1 MG CAPSULE PO (20:18)
[2025-06-26] MEDS: SENNOSIDES 8.6 MG TABLET 17.2 MG PO (20:18)
--- NOTE | 2025-06-27 06:04 | P.PN_ITS ---
Subjective Subjective Interval history: 84-year-old male with history of hypertension, hyperlipidemia, CAD s/p CABG, and recent lumbar spine fusion on June 15 presenting with multiple falls and prolonged immobilization resulting in severe rhabdomyolysis with CK >40,000. Complicated by significant volume depletion with third-spacing, stage II sacral pressure injury (likely present on admission), and postoperative wound drainage. This morning, a rapid response was called as the patient was in severe respiratory distress. He complains of having difficulty catching a breath. He is quite stridorous. He is coughing frequently. He denies any chest pain. Upon reviewing his Mar, he last received oxycodone last evening. He has not received any new medications this morning. Exam Vital Signs (past 8 hours): Fraction of Inspired Oxygen 28 SaO2/FiO2 Ratio 342 Oxygen Delivery Method Nasal Cannula Oxygen Flow Rate 0 Narrative Exam Narrative: GEN: Elderly male, Alert and oriented x 2, patient is in significant and obvious distress HEENT:NC, Face symmetric, he does initially appeared to be obstructing with his tongue in the back of his throat, he does appear to have some increased swelling about his neck bilaterally in the submandibular region CHEST: Tachypneic, stridorous, poor air movement bilaterally CV: Tachycardic, unable to determine if there is a murmur or rub or gallop over his respiratory sounds ABD: Soft, NT/ND, difficulty here is bowel tones over his respiratory effort EXTR: warm, mild cyanosis, 1+ edema bilaterally SKIN: warm and dry, no rash NEURO: Alert and oriented x 1-2, nonfocal Objective Labs 06/27/25 05:34 06/27/25 05:34 Labs: Laboratory Results - last 24 hr 06/26/25 06/26/25 06/26/25 04:55 05:04 20:25 WBC 7.7 RBC 3.73 L Hgb 11.4 L Hct 33.3 L MCV 89.3 MCH 30.5 MCHC 34.1 RDW 13.8 Plt Count 204 Neut % (Auto) 89.9 H Lymph % (Auto) 4.3 L [place] % (Auto) 5.6 Eos % (Auto) 0.0 L Baso % (Auto) 0.2 Neut # (Auto) 6900 Lymph # (Auto) 300 L [place] # (Auto) 400 Eos # (Auto) 0 Baso # (Auto) 0 Sodium 137 Potassium 4.0 Chloride 108 H Carbon Dioxide 20 L BUN 30 H Creatinine 1.19 Estimated GFR > 60 BUN/Creatinine Ratio 25.2 H Glucose 177 H POC Whole Bld Glucose 284 H D Calcium 9.6 Total Bilirubin 0.9 AST 360 H ALT 82 H Alkaline Phosphatase 46 Total Creatine Kinase 55474 H D Troponin I 0.141 H* Total Protein 5.3 L Albumin 2.9 L Globulin 2.4 Albumin/Globulin Ratio 1.2 [facility] Social History household members: children Smoking Status: Former smoker alcohol intake: former Assessment & Plan Assessment & Plan narrative: 1. Acute respiratory failure secondary to airway obstruction Unclear etiology. Multiple efforts at repositioning were made. Nasal airway was placed. He did complain of a sensation of swelling in his throat. Stat chest x-ray and ABG were ordered. Due to concerns about angioedema/anaphylaxis, stat dose of IV diphenhydramine, Solu-Medrol, and epinephrine 0.3 mg IM were ordered. Certainly given his underlying cardiac disease as well as his mildly elevated troponin and tachycardia the epinephrine has significant risk. However given severity of his stridor and airway obstruction, the benefits appear to outweigh the risk. Patient to be transferred to the intensive care unit for closer monitoring. Discussed with respiratory therapy initiating BiPAP, bringing patient downstairs for a soft tissue CT of the neck while accompanied by respiratory therapy, placing BiPAP back on patient and making further plans pending results of the soft tissue CT. Possibilities of the neck swelling include epiglottitis, peritonsillar abscess, bleeding/hematoma (less likely as his C-spine fusion was in spring of this year), or foreign body aspiration (also less likely as he has not had anything to eat or drink this morning). Bedside RN was asked to contact the patient's son to present to bedside given his sudden rapid decline in critical status. 2. Severe Rhabdomyolysis Initial CPK was 41,271. Down to 14,391 yesterday. Due to low albumin, he was 3rd spacing fluids and developed increased dyspnea/cough so IVF d/c'd yesterday. CPK fortunately continued to declined from 14,391 to a 8471. 2. Oliguria As above, 3rd spacing significantly which is decreasing his intravascular volume status. Cause is low albumin state. Urine output has been difficult to monitor as he has been incontinent. Await chest x-ray results to ascertain whether any of his respiratory symptoms could be secondary to volume overload. May benefit from IV furosemide as well. I have ordered a BNP stat as well. 3. S2PI, coccyx/buttocks Likely present on admission. Son reports he was sitting much of the time before admission. ? 4. Post op from lumbar fusion Has ongoing moderate serosanguinous fluid drainage. Suspect seroma. Incision is intact, skin w/o inflammation/redness/pain. Drainage w/o purulence/odor. No evidence of infection. Less likely hematoma as it has been draining since shortly after surgery. Doubt it is a CSF leak as he was up and ambulatory prior to his fall and rhabdo and has not had any headaches throughout this period. 5. Elevated troponin in pt with known CAD Likely d/t rhabdo. However, inital ECG showed flipped t waves in V1 and V2. No prior ECG for comparison. Last echo in system is from 2019. Requested records for comparison. Troponin increased this morning again somewhat compared with yesterday. He has denied any chest pain. His bumped today could be related to tachycardia and stridor and associated demand ischemia. I asked bedside nurse earlier this morning to once again see if we could get records from outside hospital, both EKG and more recent echocardiogram. If we are unable to get that soon, the plan was to obtain an echocardiogram today. He does have a hx of CAD. continues ASA, holding statin d/t rhabdo. 6. HTN BPs improved on home meds. Now normotensive. 7. Generalzed weakness/falls We did discuss possible need for long-term facility at discharge. 8. Hypothyroidism On chronic replacement Code DNR/DNI Propy Heparin Dispo Transfer to ICU for ongoing monitoring of acute, rapid change and critical illness Time-Based Coding :: [TOTAL MINUTES] spent with patient and on the chart (including review of chart, obtaining history, exam, reviewing outside data, placing orders, documenting exam and treatment plan, and counseling patient) on [DATE]. Quality VTE Deep Vein Thrombosis/Pulmonary Embolism Present on Admission: No
[2025-06-27 06:43] LABS: Add Manual Diff / Slide Review NO; Hematocrit 34.3 % (41-53); Hemoglobin 11.6 g/dL (13.5-17.5); Lymphocytes Absolute Auto 200 /uL (1100-4500); Mean Corpuscular HGB Conc 33.9 % (30-36); Mean Corpuscular Hemoglobin 30.1 PG (26-34); Mean Corpuscular Volume 88.8 fL (80-100); Platelet Count 163 X10^3/uL (150-400)
[2025-06-27 06:49] LABS: Alanine Aminotransferase 89 IU/L (<50); Albumin 2.5 g/dL (3.5-5.0); Albumin Globulin Ratio 1.0 (1.0-2.8); Alkaline Phosphatase 48 U/L (38-126); Blood Urea Nitrogen 30 mg/dL (9-20); Calcium 9.7 mg/dL (8.4-10.2); Carbon Dioxide 21 mmol/L (22-32); Chloride 110 mmol/L (98-107); Estimated Glomerular Filt Rate 49 mL/min (>60); Globulin 2.5 g/dL (1.7-4.1); Glucose 124 mg/dL (70-99); HEMOLYSIS < 15 (0-50); Potassium 4.0 mmol/L (3.4-5.1); Sodium 138 mmol/L (137-145); Total Protein 5.0 g/dL (6.3-8.2)
[2025-06-27 07:00] VITALS: BP 136/52; PULSE 121; RESP 27; TEMP 37.3; O2SAT 91
[2025-06-27 07:09] LABS: Creatine Kinase 8471 U/L (55-170)
[2025-06-27 07:14] LABS: Troponin I 0.187 ng/mL (0.01-0.034)
[2025-06-27 08:14] VITALS: PULSE 131; RESP 22; O2SAT 96
[2025-06-27 08:16] VITALS: BP 134/75; PULSE 89; RESP 18; TEMP 36.2; O2SAT 94
--- NOTE | 2025-06-27 08:20 | DI.RAD.S_ITS ---
PROCEDURE: XR CHEST 1V INDICATIONS: resp failure TECHNIQUE: One view of the chest was acquired. COMPARISON: [facility], CT, CT CHEST ABD PEL WO CON, 06/25/2025, 15:04. FINDINGS: Surgical changes and devices: Mediastinal cerclage wires are present. Partially visualized cervical fixation hardware.. Lungs and pleura: Low lung volumes with prominence of the right chioma, likely projectional. Prominent interstitial opacities with increased vascularity, likely secondary to low lung volumes. No focal airspace consolidation. No pleural effusion. No pneumothorax. Mediastinum: Mediastinal contours appear normal. Heart size is normal. Bones and chest wall: No suspicious bony lesions. Overlying soft tissues appear unremarkable. IMPRESSION: No acute cardiopulmonary abnormality is seen. Dictated by: Kevan Choudhary M.D. on 06/27/2025 at 8:11 Approved by: Kevan Choudhary M.D. on 06/27/2025 at 8:13
[2025-06-27] MEDS: EPINEPHrine 1 MG/ML 0.3 MG IM (08:41)
[2025-06-27 08:44] LABS: NT-proBNP (BNP-Adult 18+) 12700 pg/mL (<450)
[2025-06-27] MEDS: diphenhydrAMINE 50 MG/ML VIAL 25 MG IV (08:46)
--- NOTE | 2025-06-27 10:22 | PC.NURSE ---
0720: Went to assess pt this morning, PCT & RN cleaned pt up. Pt appeared to be having a difficult time breathing RT notified; MD notified. SpO2 88% on 2 L,pt was mouth breathing. O2 increased to 4L and placed in mouth. Sat was then 92% SonHusam notified of pt status changed. Epi & Benadryl given as per MD orders. No improvement noted Pt transferred to ICU. Once in ICU pt respirations ceased. Son came in, pt will be transferred to [facility].
--- NOTE | 2025-06-27 10:25 | PC.NURSE ---
This nurse responded to a staff assist in room 217, pt was struggling to breathe with his tongue occluding his throat, RT Clyde at bedside, Dr Duran responds to bedside, pt placed on 8L Oxy mask, stat chest xray completed, a nasal trumpet placed to assist with breathing, Epi and benedryl administered as ordered, connect pt to travel monitor and moved pt to ICU. When connecting pt to monitoring equipment it was noted that pt was completely occulding airway, Dr Duran called to pt bedside, vitals declining, pt passed quickly, no pulse noted. BINDU called for 08, son was on his way already. Dr Duran met pt at waiting room and updated son on pt expiring. Son came to room and sat with pt. Arraignments made for pt to go to [facility]. RIP
--- NOTE | 2025-06-27 10:29 | CM.DPC ---
DCP Per MD and RN, pt with respiratory distress this morning and coded and DNR and was moved to ICU and . Son was called and notified and MD and RN met bedside with him and provided support and discussed collection of his body and son chose [facility] and RN kindly helped walk son through the process. Son expressed to RN the appreciation for the care and support he and pt received. Pt around 0856 today. RAPHAEL Prescott
--- NOTE | 2025-06-27 20:39 | PM.DDS.1 ---
Discharge Summary History of Illness Narrative: Per H&P:: He was an 84-year-old male with a history of hypertension, hyperlipidemia, CAD, and CABG. He was history of 2 back surgeries, 1 which was recently and on June 15. He was apparently been doing poorly since that time and had multiple falls. He would 3 recent falls, unclear if these were today or yesterday. He was found on the ground by his son but really cannot state how long he was down for. In the ED, he was found to have rhabdomyolysis and volume depletion. The patient does note that he was extremely weak. He denies any nausea, or dyspnea. He was having protracted constipation after surgery but did have a bowel movement recently. He hurt both elbows when falling. He can move both of these with pain but normal range of motion. Hospital Course Date of Admission: 06/25/25 17:51 Date of : 06/27/25 Primary care provider: Lico Briones PA-C Consults: 06/26/25 11:15 Consult to Physical Therapy Evaluate & Treat Comment: Physician Instructions: Evaluate and Treat Discharge Diagnosis: 1. Acute respiratory failure secondary to complete upper airway obstruction of unclear etiology 2. Rhabdomyolysis 3. Coronary artery disease with demand ischemia 4. Stage II pressure injury to the coccyx and buttocks 5. Postoperative from lumbar fusion with serosanguineous fluid drainage, likely seroma Hospital Course: On the day following admission, he did have improvement in his CPK. He did have a bump in his troponin, but denied cardiac symptoms. He had evidence of 3rd spacing which was felt likely to be due to his low albumin state. He did also have transaminitis which is felt to be fairly typical and related to his rhabdomyolysis. He was noted to have significant drainage from his surgical incision, felt most likely to be due to a seroma. There was no evidence of purulence, the incision was intact without concern for dehiscence. There is no significant erythema, warmth, or evidence of infection. He was found to have evidence of a stage II pressure injury during that evaluation as well. Due to his elevated troponin and EKG showing flipped T-waves in leads V1 and V2, request was made for previous records to determine if the EKG findings were new or previously present, and to see if he had had an echocardiogram since 2018 as that was all our hospital had on file. On morning of June 27, patient developed rapid onset of respiratory distress and tachycardia. He complained of feeling swelling in his neck. Despite efforts to elucidate the etiology of it and treating for potential acute anaphylactic reaction, as well as transferring him to the intensive care unit, he rapidly before any additional interventions or diagnostic could be performed. Time of was 8:56 a.m.. His son was notified and I spoke with him at length in the hospital waiting room and brought him to the patient's bedside. All questions were answered and he felt satisfied with the patient's care. After he spent the amount of time he wished to with his father, the home was contacted. Objective Labs 06/27/25 05:34 06/27/25 05:34 Labs: Laboratory Results - last 24 hr 06/27/25 05:34 WBC 6.7 RBC 3.86 L Hgb 11.6 L Hct 34.3 L MCV 88.8 MCH 30.1 MCHC 33.9 RDW 14.1 Plt Count 163 Neut % (Auto) 92.7 H Lymph % (Auto) 3.0 L [place] % (Auto) 4.2 Eos % (Auto) 0.0 L Baso % (Auto) 0.1 Neut # (Auto) 6200 Lymph # (Auto) 200 L [place] # (Auto) 300 Eos # (Auto) 0 Baso # (Auto) 0 Sodium 138 Potassium 4.0 Chloride 110 H Carbon Dioxide 21 L BUN 30 H Creatinine 1.44 H Estimated GFR 49 L BUN/Creatinine Ratio 20.8 Glucose 124 H Calcium 9.7 Total Bilirubin 1.0 AST 333 H ALT 89 H Alkaline Phosphatase 48 Total Creatine Kinase 8471 H D Troponin I 0.187 H* NT-Pro-B Natriuret Pep 63304 H Total Protein 5.0 L Albumin 2.5 L Globulin 2.5 Albumin/Globulin Ratio 1.0
== END 2025-06-27 08:56 | disposition expired | DRG 564 ==
LOC: ED 17:51 → AC 17:51 → ICU 06-27 09:11
PROVIDERS: Emergency Medicine; Family Medicine; Admitting Provider Hospitalist; Emergency Provider Student in an Organized Health Care Education/Training Program; PCP Physician Assistant; Referring Provider Student in an Organized Health Care Education/Training Program; Visit Provider Hospitalist
DX: T79.6XXA Traumatic ischemia of muscle, initial encounter (principal); J96.01 Acute respiratory failure with hypoxia; E87.20 Acidosis, unspecified; I24.89 Other forms of acute ischemic heart disease; M96.842 Postprocedural seroma of a musculoskeletal structure following a musculoskeletal system procedure; J98.8 Other specified respiratory disorders; L89.152 Pressure ulcer of sacral region, stage 2; I25.10 Atherosclerotic heart disease of native coronary artery without angina pectoris; M25.522 Pain in left elbow; M25.521 Pain in right elbow; M54.9 Dorsalgia, unspecified; I10 Essential (primary) hypertension; E78.5 Hyperlipidemia, unspecified; E86.0 Dehydration; E03.9 Hypothyroidism, unspecified; R34 Anuria and oliguria; R53.1 Weakness; L89.322 Pressure ulcer of left buttock, stage 2; L89.312 Pressure ulcer of right buttock, stage 2; W18.30XA Fall on same level, unspecified, initial encounter; Z66 Do not resuscitate; Z91.81 History of falling; Z95.1 Presence of aortocoronary bypass graft; Z79.890 Hormone replacement therapy; Z98.1 Arthrodesis status; Z87.891 Personal history of nicotine dependence
CPT/HCPCS: 36415; 70450; 71045; 71250; 72125; 72131; 73562; 74176; 80053; 80305; 80320; 81003; 81015; 82550; 82962; 83605; 83880; 84145; 84484; 85025; 85610; 85730; 87086; 93005; 96361; 96374; 99284; J0165; J1171; J1200; J1644; J7030